=== PATIENT | female | born 1955 | race Caucasian/White ===

== ENCOUNTER 2020-05-20 16:41 | Outpatient (CLI) | payer BC, SELFPAY | END 2020-05-20 16:42 | disposition home or self-care (01) | LOC: ANHCOVIDVC 16:41 | PROVIDERS: PCP Family Medicine Adolescent Medicine | DX: Z23 Encounter for immunization (principal) | CPT/HCPCS: 0001A; 91300 ==

== ENCOUNTER 2020-06-10 16:41 | Outpatient (CLI) | payer BC, SELFPAY | END 2020-06-10 16:42 | disposition home or self-care (01) | LOC: ANHCOVIDVC 16:41 | PROVIDERS: PCP Family Medicine Adolescent Medicine | DX: Z23 Encounter for immunization (principal) | CPT/HCPCS: 0002A; 91300 ==

== ENCOUNTER → 2021-10-03 12:40 | Outpatient (CLI) | payer MEDICARE, SELFPAY ==
--- NOTE | ~2021-10-03 | MM_ITS ---
EXAMINATION: MM screening joann BI w amalia HISTORY: Screening mammogram TECHNIQUE: Craniocaudal and mediolateral oblique 3-D tomosynthesis images were obtained and synthetic 2-D images were generated. CAD analysis was submitted and interpreted. COMPARISON: 08/25/2018 bilateral screening mammogram BREAST PARENCHYMAL COMPOSITION: There are scattered areas of fibroglandular density. FINDINGS: New 3.5 mm opacity in the anterior inner mid left breast (CC Tomosynthesis image 38/78). New and enlarging opacities are suggested in the posterior outer mid left breast (craniocaudal Tomosy nthesis image 36/78). Occasional bilateral benign calcifications. No suspicious mass, architectural distortion, malignant calcification, skin thickening or retraction or significant new or developing density of either breast is noted otherwise. IMPRESSION: 1. New and enlarging opacities on the left 2. Diagnostic left mammogram and left breast ultrasound examination are recommended. BI-RADS Category 0: Incomplete: Needs additional imaging evaluation. Reviewed, dictated and finalized at location B. IMPRESSION: 1. New and enlarging opacities on the left 2. Diagnostic left mammogram and left breast ultrasound examination are recomme nded. BI-RADS Category 0: Incomplete: Needs additional imaging evaluation.
== END ==
PROVIDERS: PCP Family Medicine Adolescent Medicine; Visit Provider Family Medicine Adolescent Medicine
DX: Z12.31 Encounter for screening mammogram for malignant neoplasm of breast (principal); R92.8 Other abnormal and inconclusive findings on diagnostic imaging of breast
CPT/HCPCS: 77063; 77067

== ENCOUNTER → 2021-10-14 07:34 | Outpatient (CLI) | payer MEDICARE, SELFPAY ==
--- NOTE | ~2021-10-14 | MMUS_ITS ---
EXAMINATION: MM diagnostic joann LT w amalia, US breast LT limited HISTORY: Left breast masses on screening mammogram TECHNIQUE: Additional 3-D tomosynthesis images of the left breast were performed and synthetic 2-D im ages were generated. CAD analysis was submitted and interpreted. High resolution limited left breast ultrasound was performed. COMPARISON: 10/03/2021, 08/25/2018, 05/06/2017, 04/22/2017 FINDINGS: MAMMOGRAPHIC FINDINGS: There is a 5 mm irregular, spiculated, equal density mass in the middle third of the upper outer quad rant of the breast 7.5 cm from the nipple. There are circumscribed, low-density 4 mm masses in the an terior and middle thirds of the upper inner breast at the 11:00 location 3.5 cm and 6 cm from the nip ple, respectively. ULTRASOUND: There is a 9 mm x 6 mm irregular, not parallel, hypoechoic mass with indistinct margins, posterior ac oustic shadowing, and peripheral vascularity at the 2:00 location 5 cm from the nipple. There is a 5 mm round hypoechoic mass at the 12:00 location 5 cm from the nipple within the posterior fractures ar e internal vascularity. An adjacent 6 mm x 4 mm mass with similar sonographic features is seen at the 12:00 location 5 cm from the nipple. There is a 4 mm mass with similar sonographic features at the 1 1:00 location 6 cm from the nipple. There appears to be a stable cluster of microcysts at the 1:00 lo cation 6 cm from the nipple. IMPRESSION: 1. Suspicious mass at the 2:00 location 5 cm from the nipple. 2. Ultrasound-guided biopsy is recommended. BI-RADS category 4, suspicious findings. Reviewed, dictated and finalized at location A. IMPRESSION: 1. Suspicious mass at the 2:00 location 5 cm from the nipple. 2. Ultrasound-guided biopsy is recommended. BI-RADS category 4, suspicious findings.
== END ==
PROVIDERS: PCP Family Medicine Adolescent Medicine; Visit Provider Family Medicine Adolescent Medicine
DX: N63.20 Unspecified lump in the left breast, unspecified quadrant (principal); R92.8 Other abnormal and inconclusive findings on diagnostic imaging of breast
CPT/HCPCS: 76642; 77061; 77065; G0279

== ENCOUNTER 2021-11-07 08:58 | Outpatient (CLI) | payer MEDICARE, SELFPAY ==
--- NOTE | ~2021-11-07 | US_ITS ---
EXAMINATION: Consultation US INDICATION: Patient presents for biopsy of a mass in the upper outer quadrant of the left breast TECHNIQUE: Limited left breast ultrasound was performed. COMPARISON: 10/14/2021 FINDINGS: The mass at the 2:00 location 5 cm from the nipple identified on recent ultrasound is not d efinitely seen. This was discussed with the patient and a plan for six-month follow-up left diagnosti c mammogram and ultrasound was agreed upon. IMPRESSION: 1. No definite target identified for ultrasound-guided biopsy. Follow-up left diagnostic mammogram an d ultrasound in six months are recommended. Reviewed, dictated and finalized at location A. IMPRESSION: 1. No definite target identified for ultrasound-guided biopsy. Follow-up left d iagnostic mammogram and ultrasound in six months are recommended.
== END 2021-11-07 08:59 | disposition home or self-care (01) ==
PROVIDERS: PCP Family Medicine Adolescent Medicine; Visit Provider Family Medicine Adolescent Medicine
DX: N63.20 Unspecified lump in the left breast, unspecified quadrant (principal)
CPT/HCPCS: 99199

== ENCOUNTER → 2022-05-06 09:17 | Outpatient (CLI) | payer MEDICARE, SELFPAY ==
--- NOTE | ~2022-05-06 | MMUS_ITS ---
EXAMINATION: MM diagnostic jaonn LT w amalia, US breast LT limited HISTORY: Six-month follow-up TECHNIQUE: Full field and spot ML, MLO and CC 3-D tomosynthesis images of the left breast were perfor med and synthetic 2-D images were generated. CAD analysis was submitted and interpreted. High resolut ion upper inner and upper outer quadrants left breast ultrasound was performed. COMPARISON: 10/14/2021 diagnostic left mammogram and limited left breast ultrasound 10/03/2021 bilateral screening mammogram BREAST PARENCHYMAL COMPOSITION: There are scattered areas of fibroglandular density. FINDINGS: MAMMOGRAPHIC FINDINGS: Multiple nodular masses are again noted, primarily in the upper outer quadrant. The largest is an approximately 1 cm irregular mass situated posteriorly in the upper outer quadrant. ULTRASOUND: 11:00 6 cm from nipple: 1.4 x 4 mm probable cyst 12:00 5 cm from nipple: 3.8 x 4.6 mm sonolucency consistent with small cyst or other benign process 12:00 5 cm from nipple: Parallel circumscribed 2.5 x 6 mm multi septated probable cyst 1:00 6 cm from nipple: Multiple circumscribed small hypoechoic areas with interspersed fibroglandular density, likely a cluster of cysts. 2:00 5 cm from nipple: Anti-parallel irregular hypoechoic lesion with posterior shadowing, measuring up to 7.1 mm depth, 5 mm width; this is very suspicious. Ultrasound-guided biopsy is recommended. IMPRESSION: 1. Very suspicious anti-parallel irregular hypoechoic 5 x 7.1 mm lesion with posterior shadowing at l eft breast 2:00 5 cm from nipple 2. Ultrasound-guided biopsy is recommended at left breast 2:00 5 cm from nipple BI-RADS category 4, suspicious findings. Dr. Rushing telephoned the report and ultrasound guided biopsy recommendation of the left breast 2:00 le sravanthi on 05/06/2022 at 1044 hours to Beverly Santana. Reviewed, dictated and finalized at location A. BERRY GROWER IMPRESSION: 1. Very suspicious anti-parallel irregular hypoechoic 5 x 7.1 mm lesion with po sterior shadowing at left breast 2:00 5 cm from nipple 2. Ultrasound-guided biopsy is recommended at left breast 2:00 5 cm from nipple BI-RADS category 4, suspicious findings. Dr. Rushing telephoned the report and ultrasound guided biopsy recommendation of t he left breast 2:00 lesion on 05/06/2022 at 1044 hours to Beverly Santana.
== END ==
PROVIDERS: PCP Family Medicine Adolescent Medicine; Visit Provider Family Medicine Adolescent Medicine
DX: N63.20 Unspecified lump in the left breast, unspecified quadrant (principal); R92.8 Other abnormal and inconclusive findings on diagnostic imaging of breast
CPT/HCPCS: 76642; 77061; 77065; G0279

== ENCOUNTER 2022-05-13 09:55 | Outpatient (CLI) | payer MEDICARE, SELFPAY ==
--- NOTE | ~2022-05-13 | MMUS_ITS ---
EXAMINATION: US breast biopsy LT w image, MM post biopsy invasive LT DATE: 05/13/2022 11:22 (accession [id number]), 05/13/2022 11:19 (accession [id number]) INDICATION: Indeterminate mass in the upper outer quadrant of the left breast. Ultrasound-guided core biopsy is requested to evaluate for malignancy. TECHNIQUE AND FINDINGS: The risks and potential benefits of the procedure were discussed with the patient including bleeding and infection. A time out was performed. The skin of the left breast was prepared and draped in usual sterile fashion. 1% lidocaine was used for superficial anesthesia. 1% lidocaine with epinephrine was used for deep anesthesia. A vacuum-assisted biopsy needle was advanced through to the outer edge of the region of interest from an inferolateral approach utilizing sonographic guidance. A total of five tissue core samples were o btained through the lesion. A tissue marker clip was then placed at the biopsy site. Hemostasis was a chieved. A sterile bandage was applied. The patient tolerated procedure well and there was no evidence of immediate complication. The patient was given verbal instructions to return to the Emergency Department in the event of severe breast pa in or rapid breast enlargement. A two view left breast mammogram was obtained to document tissue brennen er clip placement. IMPRESSION: 1. Successful ultrasound-guided vacuum-assisted biopsy of left breast mass with tissue marker placeme nt. Reviewed, dictated and finalized at location A. STATION ATTENDANT IMPRESSION: 1. Successful ultrasound-guided vacuum-assisted biopsy of left breast mass with tissue marker placement.
== END 2022-05-13 09:56 | disposition home or self-care (01) ==
PROVIDERS: PCP Family Medicine Adolescent Medicine; Visit Provider Family Medicine Adolescent Medicine
DX: R92.8 Other abnormal and inconclusive findings on diagnostic imaging of breast (principal)
CPT/HCPCS: 19083; 88305; 88342; 88360; A4648

== ENCOUNTER 2022-06-19 07:50 | Outpatient (CLI) | payer MEDICARE, SELFPAY ==
--- NOTE | 2022-06-19 08:00 | ECG_ITS ---
Measurements Intervals [place] Rate: 81 P: 37 AL: 175 QRS: 45 QRSD: 94 T: 47 QT: 359 QTc: 417 Interpretive Statements SINUS RHYTHM NORMAL ECG NO PREVIOUS ECG AVAILABLE FOR COMPARISON Electronically Signed On 06-19-2022 16:45:05 CDT by Pavan Souza M.D.
== END 2022-06-19 07:51 | disposition home or self-care (01) ==
LOC: ANHSURGERY 07:54
PROVIDERS: PCP Family Medicine Adolescent Medicine; Visit Provider Surgery
DX: I10 Essential (primary) hypertension (principal)
CPT/HCPCS: 93005

== ENCOUNTER 2022-06-24 01:58 | Day surgery (SDC) | payer MEDICARE, SELFPAY ==
--- NOTE | 2022-06-15 13:13 | PC.NURSE ---
Report to the Outpatient Waiting Room, entrance under the green pavilion located off [facility], at time _0930 on date _06/24/22 [facility] AT 1030 . Planned Procedure Time: ___1200 . Time changes happen often and if your time is changed the preop area will call you the afternoon before. - You and your visitor will be asked to self-screen and do not enter if you have any COVID symptoms. - A mask is optional within the hospital at this time. Patients may have clear liquids (water, carbonated beverages, clear teas, apple juice) until 3 hours prior to surgery with a maximum of 20 ounces. - No food from midnight until time of surgery - Infants may have breast milk until 4 hours before surgery, infant formula 6 hours prior to surgery. - Children will be allowed to drink immediately following surgery. If applicable, please bring a bottle or sippy cup to assist with drinking. Juice, water, soda, and popsicles are readily available. For infants on formula, please bring formula the day of surgery. Pacifiers are allowed. Take the following medications with a SIP of water the morning of surgery: __NONE DO NOT STOP ANY OF YOUR OTHER PRESCRIPTION MEDICATIONS PRIOR TO SURGERY ?EXCEPT THE FOLLOWING Medications to discontinue per physician ALL VITAMINS/SUPPLEMENTS 3 DAYS PRE OP. LAST DOSE 06/20/22 HIBICLENS SHOWER MORNING OF SURGERY Please no make-up, nail greenlandic, hairspray, perfume, deodorant, or body powder the day of surgery. No jewelry (including any body piercings) or valuables the day of surgery, leave them at home. Please take a shower or bath the night before, or the morning of, surgery with an antibacterial soap. Wear comfortable, loose fitting clothing. Children are encouraged to wear pajamas. - Jewelry must be removed prior to entering the operating room. Rings and piercings that are not removed may be cut off. - The hospital will not accept responsibility for valuables. - Please leave all valuables, including medications, at home the day of surgery. If you are going home after surgery, a licensed route salesman and driver must drive you home. - NO public transportation without another adult if you receive anesthesia. - We recommend that an adult stay with you for 24 hours following discharge. - We also recommend that you do not drive, make important decision, drink alcoholic beverages, or take any drugs that were not prescribed by your health care provider for at least 24 hours after your discharge time. Follow any additional instructions given to you from your surgeon. If you or anyone in your household have experienced Covid symptoms in the past week, please notify your surgeon or the nurse liaison at the phone number below for possible testing. Telephone instructions given to ___PATIENT and asked if any additional questions and then verbalized understanding. Patient advised to call surgeon office or pre surgery nurse liaison [phone] if any additional questions.
[2022-06-15 13:21] VITALS: BMI 33.9
[2022-06-24] VITALS (8 sets, daily range): BP systolic 125–148; BP diastolic 69–110; PULSE 80–96; RESP 14–16; TEMP 36.3–37.1; O2SAT 95–100
--- NOTE | ~2022-06-24 | NM_ITS ---
EXAMINATION: NM sentinel node inject only INDICATION: Left breast cancer TECHNIQUE: 1.018 mCi Tc 99m Lymphoseek were injected in 4 aliquots in the left breast near the areola . No images were obtained. IMPRESSION: 1. Status post left breast sentinel lymph node radiopharmaceutical injection. Please refer to procedu re note for full details. Reviewed, dictated and finalized at location A. IMPRESSION: 1. Status post left breast sentinel lymph node radiopharmaceutical injection. P lease refer to procedure note for full details.
--- NOTE | ~2022-06-24 | MM_ITS ---
EXAMINATION: MM needle loc LT, MM surgical specimen LT DATE: 06/24/2022 10:13 (accession [id number]), 06/24/2022 13:05 (accession [id number]) INDICATION: Left breast cancer TECHNIQUE: The procedure for a mammography-guided needle localization was discussed with the patient. Risks and benefits were detailed including risks of bleeding and infection. The patient verbalized u nderstanding and agreed to proceed. A time out was performed to verify the patient's name, date of , and site of procedure. The silvia ent was placed in lateral medial compression, and the skin overlying the lateral left breast was pre pared in usual fashion. The skin and subcutaneous soft tissues were infiltrated with 1% lidocaine for local anesthesia. Utilizing mammography guidance, a needle was advanced into the left breast. Two co nfirmatory films were obtained. The patient tolerated procedure without immediate complication. A specimen radiograph was performed. FINDINGS: Two view confirmatory films of the left breast demonstrate a needle with tip adjacent to bi opsy marker. The biopsy marker and wire are contained within the surgical specimen. IMPRESSION: 1. Successful mammography-guided left breast needle localization. Reviewed, dictated and finalized at location A. IMPRESSION: 1. Successful mammography-guided left breast needle localization.
[2022-06-24] MEDS: ACETAMINOPHEN 500 MG TABLET 1000 MG PO (09:30)
[2022-06-24] MEDS: LACTATED RINGERS 1,000 ML 30 ML IV CONT (10:30)
--- NOTE | 2022-06-24 11:21 | WPDANESEPPF ---
Anes - Initial Pre Proc Eval Procedure: Operation Date: 06/24/22 12:00 Proposed Procedures p Left Breast Lumpectomy with [place] Lymph Node Biopsy - Savanah Weaver MD s Left Breast Ultrasound And/Or Mammogram, Guided Needle Localization with Lymphoscintigraphy - Savanah Weaver MD Date/Time: 06/24/22 11:21 Surgeon: Savanah Weaver MD Pre Op Diagnosis: Left Breast Cancer Patient Data Age: 66 Gender: F Height: 1.66 m Weight: 96.1 kg Last Vital Signs Temp 98.7 F 06/24/22 09:52 Pulse 82 06/24/22 10:35 Resp 16 06/24/22 09:52 BP 139/83 06/24/22 10:35 Pulse Ox 100 06/24/22 09:52 O2 Del Method Room Air 06/24/22 09:52 Allergies Allergy/AdvReac Type Severity Reaction Status Date / Time Sulfa (Sulfonamide Allergy Unknown UNKNOWN Verified 06/24/22 09:24 Antibiotics) REACTION Home Medications Medication Instructions Recorded Confirmed Type ascorbate calcium (vitamin C) 500 500 mg PO DAILY 07/15/21 06/24/22 History mg tablet aspirin 81 mg tablet,delayed 81 mg PO DAILY 07/15/21 06/24/22 History release apjvjbn-hvioccrlupbeo-ahdztvnn 250 1 tablet PO .QD 07/15/21 06/24/22 History mg-250 mg-65 mg tablet (Excedrin Migraine) calcium carbonate 600 mg calcium 600 mg PO DAILY 07/15/21 06/24/22 History (1,500 mg) tablet (Calcium) cetirizine 10 mg capsule (Zyrtec) 10 mg PO DAILY PRN Allergy Symptoms 07/15/21 06/24/22 History esomeprazole magnesium 20 mg 20 mg PO .PRN 07/15/21 06/24/22 History capsule,delayed release (Nexium) glucosamine 750 mg-chondroit 100 2 tablet PO .QD 07/15/21 06/24/22 History mg-msm-D3 25 rap-ynrm-rhu bor tablet magnesium 200 mg tablet 250 mg PO DAILY 07/15/21 06/24/22 History jnsjojvw-rngbhrn-jucx-lutein tablet 1 tablet PO .QD 07/15/21 06/24/22 History naproxen sodium 220 mg capsule 220 mg PO .QD PRN Pain 07/15/21 06/24/22 History (Aleve) omega-3 fatty acids 500 mg capsule 500 mg PO DAILY 07/15/21 06/24/22 History vit C 250 mg-vit E 90 mg-zinc 40 1 tablet PO .QD 07/15/21 06/24/22 History mg-copper 1 cb-bgrvma-juahif capsule (PreserVision AREDS-2) zinc gluconate 30 mg tablet 30 mg PO DAILY 07/15/21 06/24/22 History atorvastatin 20 mg tablet 20 mg PO DAILY #90 tabs 12/05/21 06/24/22 Rx losartan 50 mg tablet 50 mg PO DAILY #90 tabs 12/05/21 06/24/22 Rx cholecalciferol (vitamin D3) 25 25 mcg PO DAILY 06/15/22 06/24/22 History mcg (1,000 unit) tablet ginkgo biloba 40 mg tablet 40 mg PO DAILY 06/15/22 06/24/22 History pyridoxine (vitamin B6) 100 mg 100 mg PO DAILY 06/15/22 06/24/22 History tablet Patient hx anesthesia problems: post op nausea/vomiting Family hx anesthesia problems: none Results Review: All pre-operative results and documents have been reviewed as part of the pre-operative evaluation. [facility] Past Medical History Medical History Essential (primary) hypertension Gastro-esophageal reflux disease without esophagitis History of menopause Early 50s Mixed hyperlipidemia Surgical History Surgical History History of knee surgery History of tonsillectomy Family History Family History Father Acute myocardial infarction Heart disease Hypertension Mother Breast cancer Diabetes mellitus Other Breast cancer Social History Social History Smoking status: Never smoker Second hand tobacco smoke exposure: No Alcohol intake: current Drinks per week: 1 Substance use: never Substance use type: does not use Living arrangements: with family Occupation/Education: retired Gender identity (if verbalized by the patient): Female Sexual Orientation (if Verbalized by the Patient): Straight or Heterosexual Spiritual care concerns: No Agree to blood products: Yes Raynes - Anisa
[2022-06-24] MEDS: SCOPOLAMINE 1.5 MG PATCH TRANSDERM (11:30)
[2022-06-24] MEDS: KETOROLAC 15 MG/ML VIAL (*BKC) IV PUSH (11:59)
--- NOTE | 2022-06-24 12:02 | WPDHPUPDATE1 ---
History and Physical Update Update Date/Time: 06/24/22 12:02 History and Physical has been reviewed, including an updated exam of the patient. There are NO changes in the patient's condition. Risks, benefits, and alternatives have been discussed and questions answered. Patient agrees to proceed with procedure. after d/w oncology plan to proceed c L breast lumpectomy c preop needle loc and L ax SLNB
--- NOTE | 2022-06-24 12:04 | PM.IMHP ---
H&P: HPI History of Present Illness Date/Time: 06/24/22 12:04 Chief Complaint: Left breast cancer Narrative: Chen is a 66 y/o female who presents to the office accompanied by her at the request of Dr. Paul for evaluation of a left breast mass. Patient underwent screening mammogram in September 2021 showing an abnormality in the left breast. Diagnostic mammogram/ultrasound was done in October 2021 showing a suspicious mass at the 2:00 location 5 cm from the nipple. US guided biopsy was recommended, however they were unable to target the area to be biopsied. Patient was recommended to have repeat imaging 6 months from previous imaging. Diagnostic mammogram/ultrasound on 05/06/22 FINDINGS: MAMMOGRAPHIC FINDINGS: Multiple nodular masses are again noted, primarily in the upper outer quadrant. The largest is an approximately 1 cm irregular mass situated posteriorly in the upper outer quadrant. ULTRASOUND: 11:00 6 cm from nipple: 1.4 x 4 mm probable cyst 12:00 5 cm from nipple: 3.8 x 4.6 mm sonolucency consistent with small cyst or other benign process 12:00 5 cm from nipple: Parallel circumscribed 2.5 x 6 mm multi septated probable cyst 1:00 6 cm from nipple: Multiple circumscribed small hypoechoic areas with interspersed fibroglandular density, likely a cluster of cysts. 2:00 5 cm from nipple: Anti-parallel irregular hypoechoic lesion with posterior shadowing, measuring up to 7.1 mm depth, 5 mm width; this is very suspicious. Ultrasound-guided biopsy is recommended. IMPRESSION: 1. Very suspicious anti-parallel irregular hypoechoic 5 x 7.1 mm lesion with posterior shadowing at left breast 2:00 5 cm from nipple 2. Ultrasound-guided biopsy is recommended at left breast 2:00 5 cm from nipple BI-RADS category 4, suspicious findings. Pathology revealed invasive ductal carcinoma. Patient states she cannot feel the area of concern. She denies any breast pain, redness, nipple discharge or inversion. Patient reports a family history of breast cancer with her mother and maternal aunt. Review of Systems Review of Systems: All systems reviewed & are unremarkable except as noted in HPI and below PMFSH Past Medical History Medical History Essential (primary) hypertension Gastro-esophageal reflux disease without esophagitis History of menopause Early 50s Mixed hyperlipidemia Surgical History Surgical History History of knee surgery History of tonsillectomy Family History Family History Father Acute myocardial infarction Heart disease Hypertension Mother Breast cancer Diabetes mellitus Other Breast cancer Social History Social History Smoking status: Never smoker Second hand tobacco smoke exposure: No Alcohol intake: current Drinks per week: 1 Substance use: never Substance use type: does not use Living arrangements: with family Occupation/Education: retired Gender identity (if verbalized by the patient): Female Sexual Orientation (if Verbalized by the Patient): Straight or Heterosexual Spiritual care concerns: No Agree to blood products: Yes Meds Home Medications and Allergies Home Medications Medication Instructions Recorded Confirmed Type ascorbate calcium (vitamin C) 500 500 mg PO DAILY 07/15/21 06/24/22 History mg tablet aspirin 81 mg tablet,delayed 81 mg PO DAILY 07/15/21 06/24/22 History release jarajfv-ncmbfkjqrqioh-zlqmdale 250 1 tablet PO .QD 07/15/21 06/24/22 History mg-250 mg-65 mg tablet (Excedrin Migraine) calcium carbonate 600 mg calcium 600 mg PO DAILY 07/15/21 06/24/22 History (1,500 mg) tablet (Calcium) cetirizine 10 mg capsule (Zyrtec) 10 mg PO DAILY PRN Allergy Symptoms 07/15/21 06/24/22 History esomeprazole magnesium 20 mg 20 mg PO .PRN
[2022-06-24] MEDS: ceFAZolin 2 GM/D5W 50 ML 2 GM/50 ML BAG IVPB (12:11)
[2022-06-24] MEDS: BUPIVACAINE/EPINEPHRINE 0.5% 50 ML VIAL 30 ML INFILTRATE (12:11)
[2022-06-24] MEDS: ISOSULFAN BLUE 1% INJ 5 ML VIAL SUB-Q (12:11)
--- NOTE | 2022-06-24 13:28 | P.OP_ITS ---
Procedure Note - Detailed Date of Procedure 06/24/22 Pre-op Diagnosis Left Breast Cancer Post-op Diagnosis Same Procedure Performed segmental mastectomy left breast invasive ductal carcinoma with preoperative needle localization, left axillary sentinel lymph node biopsy with preoperative lymphoscintigraphy Surgeon Savanah Weaver MD Anesthesia General and Local Indications 66-year-old female with biopsy-proven right invasive ductal carcinoma Findings specimen confirmed via postop imaging, blue and hot SLN in L axilla Description of Procedure The patient was taken to the operating room and placed in the supine position. After adequate induction of general anesthesia, the patient was prepped and draped in the normal sterile fashion. A time-out was then done to verify the patient's identity, as well as the procedure being performed. I began by injecting 50% Lymphazurin blue mixed with saline in each of the 4 quadrants of the nipple-areolar complex. This was then massaged into the left axilla. I the n localized the area around the previously placed wire. I then made a curvilinear incision just medial to the wire. Once to the level of the breast tissue, I raised flaps around the incision to separate the breast tissue off the overlying dermis. The wire was encountered at this point and brought into the operative field. I then carefully dissected around the wire making sure to get adequate tissue especially around the tip of the wire. Once I was circumferentially around the wire, I dissected posteriorly and excised the specimen. I then marked the specimen with a short stitch superiorly and a long stitch laterally. The tissue was then sent to imaging, and the marker was confirmed within the specimen. I then gained hemostasis with the Bovie cautery. The subcutaneous tissue was closed with 3-0 Vicryl suture. The skin was closed with 4-0 Monocryl subcuticular suture. Dermabond was then placed on the wound. Using the Brimhall Nizhoni counter, a hot spot was found in the left axilla. I then localized the area over the spot, I then made an incision. This was carried down into the left axilla. A lymph node was immediately encountered, this was noted to be both hot and blue. I carefully excised this lymph node using both blunt and sharp dissection. The Jose counter was used to confirm this sentinel lymph node. After removal, I used the Br[place]hall Nizhoni counter again and did not encounter any other hot or blue areas. The right axilla was copiously irrigated. The subcutaneous tissue was closed with 3-0 Vicryl suture. Skin was closed with 4-0 Monocryl subcuticular suture. The patient tolerated the procedure well and was extubated in the operating room postoperatively. She will be sent to the recovery room in stable condition. Estimated Blood Loss 10 Drains No Packing No Pathology Yes Complications No immediate complications Condition Stable Disposition PACU [facility] Billing Surgery - Charge Forward: Surgery Billing
== END 2022-06-24 15:10 | disposition home or self-care (01) ==
PROVIDERS: PCP Family Medicine Adolescent Medicine; Visit Provider Surgery
PROC: (CPT 19301; principal; 2022-06-24 12:00)
PROC: (CPT 19301; 2022-06-24 12:00)
DX: C50.412 Malignant neoplasm of upper-outer quadrant of left female breast (principal); Z17.0 Estrogen receptor positive status [ER+]; I10 Essential (primary) hypertension; E78.2 Mixed hyperlipidemia; K21.9 Gastro-esophageal reflux disease without esophagitis; Z79.82 Long term (current) use of aspirin; E66.9 Obesity, unspecified; Z68.34 Body mass index [BMI] 34.0-34.9, adult
CPT/HCPCS: 19301; 38525; 19281; 38792; 76098; 88307; A9270; A9520; C1769; J0690; J1100; J1885; J2250; J2405; J2704; J3010; J7120

== ENCOUNTER 2022-07-30 13:38 | Outpatient (CLI) | payer MEDICARE, SELFPAY ==
--- NOTE | ~2022-07-30 | US_ITS ---
EXAMINATION: US_ABSCYSTIMG_US, US breast LT limited DATE: 07/30/2022 15:26 (accession [id number]), 07/30/2022 14:49 (accession [id number]) INDICATION: Patient with skin redness of the left breast status post recent lumpectomy, concern for a bscess TECHNIQUE: Preliminary scanning of the left breast demonstrates an approximately 3.6 x 2.7 cm oval, c ircumscribed, parallel, complex cystic and solid mass with posterior acoustic enhancement in the oute r breast at the 3:00 location six, 6 cm from the nipple. There is overlying skin thickening of the br east. Differential of abscess and/or postoperative hematoma/seroma was discussed with the patient and decision was made to attempt aspiration. The procedure including the risks and benefits were discuss ed with the patient. Risks discussed included bleeding including bleeding and infection. A timeout was performed to verify the patient's name, date of , and procedure to be performed. The skin ov erlying the left was prepped and draped in usual sterile fashion. Anesthetic was administered with 1 % lidocaine subcutaneously followed by 1% lidocaine with epinephrine for deep anesthesia. Under ultra sound guidance, an 18-gauge spinal needle was placed within the breast mass. Approximately 15 cc of d ark red fluid were drained from the mass. There were no immediate complications. FINDINGS: Ultrasound images demonstrate the catheter within the left breast mass. IMPRESSION: 1. Successful ultrasound-guided percutaneous left breast mass drainage, likely postoperative hematoma /seroma. Reviewed, dictated and finalized at location A. IMPRESSION: 1. Successful ultrasound-guided percutaneous left breast mass drainage, likely postoperative hematoma/seroma.
== END 2022-07-30 13:39 | disposition home or self-care (01) ==
PROVIDERS: PCP Family Medicine Adolescent Medicine; Visit Provider Radiology Radiation Oncology
DX: C50.912 Malignant neoplasm of unspecified site of left female breast (principal)
CPT/HCPCS: 10160; 19000; 76642; 76942; 77290; 77334

== ENCOUNTER 2022-09-23 09:17 | Outpatient (CLI) | payer MEDICARE, SELFPAY ==
[2022-09-23 09:27] LABS: Basophils Percent Auto 0.8 % (0.2-1.2); Eosinophils Absolute Auto 0.2 K/mm3 (0-0.3); Eosinophils Percent Auto 3.8 % (0-4.4); Hematocrit 41.3 % (37.0-47.0); Hemoglobin 13.8 g/dL (12.0-15.0); Immature Granulocyte Absolute 0.02 K/mm3 (0.00-0.031); Immature Granulocyte Percent A 0.4 % (0-0.5); Lymphocytes Absolute Auto 0.89 K/mm3 (0.9-3.2); Mean Corpuscular HGB Conc 33.4 g/dl (32-36); Mean Corpuscular Hemoglobin 30.1 pg (26-34); Mean Corpuscular Volume 90.2 fl (80-100); Mean Platelet Volume 9.3 fl (7.4-10.4); Monocytes Absolute Auto 0.7 K/mm3 (0.1-0.6); Monocytes Percent Auto 13.6 % (2.6-8.5); Neutrophils Absolute Auto 3.4 K/mm3 (1.3-6.7); Neutrophils Percent Auto 64.4 % (45.5-73.1); Platelet Count Result 215 k/mm3 (150-375); Red Blood Count 4.58 M/mm3 (4.2-5.4); Red Cell Distribution Width 13.6 % (11.5-14.5); White Blood Count 5.2 K/mm3 (4.5-10.0)
[2022-09-23 09:31] LABS: Blood Urea Nitrogen 14 mg/dL (8-26); Carbon Dioxide 21 mmol/L (22-30); Chloride 103 mmol/L (98-109); Estimated Glomerular Filt Rate > 60; Glucose 102 mg/dL (70-105); Ionized Calcium (POC) 1.15 mmol/L (1.11-1.31); Potassium 3.8 mmol/L (3.5-4.9); Sodium 138 mmol/L (138-146)
[2022-09-23 10:32] LABS: Alanine Aminotransferase 32 U/L (6-35); Albumin Level 4.2 g/dL (3.5-5.1); Alkaline Phosphatase 67 U/L (38-126); Anion Gap 9 mmol/L (8-16); Aspartate Amino Transferase 28 U/L (14-36); Bilirubin,Total 0.9 mg/dL (0.2-1.3); Blood Urea Nitrogen 14 mg/dL (7-17); Carbon Dioxide 25 mmol/L (22-30); Chloride 103 mmol/L (98-107); Estimated Glomerular Filt Rate > 60; Glucose 101 mg/dL (65-110); Sodium 137 mmol/L (137-145)
== END 2022-09-23 09:18 | disposition home or self-care (01) ==
LOC: ANHLAB 09:19
PROVIDERS: PCP Family Medicine Adolescent Medicine; Visit Provider Internal Medicine Hematology & Oncology
DX: C50.412 Malignant neoplasm of upper-outer quadrant of left female breast (principal); Z17.0 Estrogen receptor positive status [ER+]
CPT/HCPCS: 36415; 80047; 80053; 85025

== ENCOUNTER 2022-11-25 08:14 | Outpatient (CLI) | payer MEDICARE, SELFPAY ==
[2022-11-25 08:29] LABS: Basophils Absolute Auto 0.1 K/mm3 (0.0-0.1); Basophils Percent Auto 1.1 % (0.2-1.2); Eosinophils Absolute Auto 0.2 K/mm3 (0-0.3); Eosinophils Percent Auto 3.7 % (0-4.4); Hematocrit 41.8 % (37.0-47.0); Hemoglobin 13.8 g/dL (12.0-15.0); Immature Granulocyte Absolute 0.01 K/mm3 (0.00-0.031); Immature Granulocyte Percent A 0.2 % (0-0.5); Lymphocytes Absolute Auto 1.05 K/mm3 (0.9-3.2); Lymphocytes Percent Auto 22.7 % (18.3-44.2); Mean Corpuscular Hemoglobin 30.3 pg (26-34); Mean Corpuscular Volume 91.7 fl (80-100); Mean Platelet Volume 9.5 fl (7.4-10.4); Monocytes Absolute Auto 0.7 K/mm3 (0.1-0.6); Monocytes Percent Auto 15.3 % (2.6-8.5); Neutrophils Absolute Auto 2.6 K/mm3 (1.3-6.7); Platelet Count Result 224 k/mm3 (150-375); Red Blood Count 4.56 M/mm3 (4.2-5.4); Red Cell Distribution Width 13.6 % (11.5-14.5); White Blood Count 4.6 K/mm3 (4.5-10.0)
[2022-11-25 09:31] LABS: Alanine Aminotransferase 26 U/L (6-35); Albumin Level 4.3 g/dL (3.5-5.1); Alkaline Phosphatase 67 U/L (38-126); Anion Gap 9 mmol/L (8-16); Aspartate Amino Transferase 28 U/L (14-36); Bilirubin,Total 0.9 mg/dL (0.2-1.3); Blood Urea Nitrogen 16 mg/dL (7-17); Calcium 9.1 mg/dL (8.4-10.2); Carbon Dioxide 23 mmol/L (22-30); Chloride 104 mmol/L (98-107); Estimated Glomerular Filt Rate > 60; Glucose 96 mg/dL (65-110); Potassium 3.8 mmol/L (3.4-5.0); Sodium 136 mmol/L (137-145)
[2022-11-30 15:25] LABS: CA 15-3 15 U/mL (<32)
== END 2022-11-25 08:15 | disposition home or self-care (01) ==
LOC: ANHLAB 08:16
PROVIDERS: PCP Family Medicine Adolescent Medicine; Visit Provider Internal Medicine Hematology & Oncology
DX: C50.412 Malignant neoplasm of upper-outer quadrant of left female breast (principal); Z17.0 Estrogen receptor positive status [ER+]
CPT/HCPCS: 36415; 80053; 85025; 86300

== ENCOUNTER 2022-12-28 10:54 | Outpatient (CLI) | payer MEDICARE, SELFPAY ==
--- NOTE | ~2022-12-28 | MMUS_ITS ---
EXAMINATION: MM diagnostic joann BI w amalia, US breast BI limited HISTORY: Left breast malignancy; status post left partial mastectomy and radiotherapy TECHNIQUE: 4 field and spot ML, MLO and CC 3-D tomosynthesis images of both breasts were performed an d synthetic 2-D images were generated. CAD analysis was submitted and interpreted. High resolution bi lateral upper outer and lower-outer quadrant breast ultrasound was performed. COMPARISON: 07/30/2022 left breast ultrasound guided drainage procedure 05/13/2022 left ultrasound guided breast biopsy 05/06/2022 diagnostic left mammogram and limited left breast ultrasound examination 10/14/2021 diagnostic left mammogram and limited left breast ultrasound 10/03/2021 bilateral screening mammogram BREAST PARENCHYMAL COMPOSITION: There are scattered areas of fibroglandular density. FINDINGS: MAMMOGRAPHIC FINDINGS: Right breast: There are scattered benign-appearing rounded calcifications, consistent with microhematomas and/or be nign fibroadenomas. Left breast: There is an asymmetric approximately 2.3 x 5.2 cm irregular opacity in the posterior upp er outer left breast, likely postoperative change from partial mastectomy. There is mild overlying re traction. There is skin thickening of the left breast, likely due to radiotherapy. Limited bilateral benign appearing calcification. ULTRASOUND: Right breast: 12:00 2 cm from nipple: Rounded 2.2 x 3.7 mm circumscribed hypoechoic lesion without posterior shadow ing, probably benign 12:00 1 cm from nipple: Oval parallel circumscribed 4 x 2.9 x 5.1 mm mixed solid and sonolucent lesio n, without suspicious shadowing, likely benign 9:00 near nipple: 2.4 mm cyst Left breast: 1:00 3 cm from nipple: Parallel circumscribed hypoechoic 9.9 x 3.4 x 4.6 mm lesion without internal v ascularity or posterior shadowing, benign in appearance 2:00 5 cm from nipple: Parallel circumscribed mixed sonolucent and solid complex lesion measuring 1.5 x 7.7 x 9 mm, without internal vascularity, likely benign. 3:00 6 cm from nipple: Parallel circumscribed oval complicated cyst measuring 2.8 x 1.6 x 2.3 cm, wit h through transmission posterior enhancement and no internal vascularity, likely a postoperative sero ma. IMPRESSION: 1. Probable bilateral benign findings; six-month follow-up bilateral diagnostic mammogram and breast ultrasound examination is recommended 2. Status post left partial mastectomy and radiotherapy for breast malignancy BI-RADS category 3, probably benign findings. Reviewed, dictated and finalized at location A. IMPRESSION: 1. Probable bilateral benign findings; six-month follow-up bilateral diagnostic mammogram and breast ultrasound examination is recommended 2. Status post left partial mastectomy and radiotherapy for breast malignancy BI-RADS category 3, probably benign findings.
== END 2022-12-28 10:55 | disposition home or self-care (01) ==
PROVIDERS: PCP Family Medicine Adolescent Medicine; Visit Provider Radiology Radiation Oncology
DX: C50.912 Malignant neoplasm of unspecified site of left female breast (principal); R92.8 Other abnormal and inconclusive findings on diagnostic imaging of breast
CPT/HCPCS: 76642; 77062; 77066; G0279

== ENCOUNTER 2023-02-11 10:17 | Outpatient (CLI) | payer MEDICARE, SELFPAY ==
--- NOTE | ~2023-02-11 | DEXA_ITS ---
Bone Density Report Name: JESUS RIVERA Age: 67 Sex: Female Ethnicity: White Date of : 1955 Indication: postmenopausal; screening for osteoporosis; height loss; cancer; Referring Provider: GARFIELD LAGUNAS Study: Bone densitometry was performed. Exam Date: February 11, 2023 Accession number: [id number] Bone Density: Region BMD T-score Z-score Classification AP Spine(L1-L4) 0.875 -1.6 0.4 Osteopenia Femoral Neck (Left) 0.800 -0.4 1.3 Normal Total Hip (Left) 0.939 0.0 1.4 Normal Femoral Neck (Right) 0.834 -0.1 1.6 Normal Total Hip (Right) 0.922 -0.2 1.2 Normal Total Hip Mean 0.930 -0.1 1.3 Normal World Health Organization criteria for BMD impression classify patients as: Normal (T-score at or above -1.0), Osteopenia (T-score between -1.0 and -2.5), or Osteoporosis (T-score at or below -2.5). 10-year Fracture Risk(1): Major Osteoporotic Fracture 7.1% Hip Fracture 0.4% Reported Risk Factors: [place] (), Neck BMD=0.800, BMI=36.0 (1) FRAX(R) Version 3.08. Fracture probability calculated for an untreated patient. Fracture probability may be lower if the patient has received treatment. Clinical Information Provided by Patient: Has used the following medications: Vitamin D, Calcium Has the following medical conditions: Cancer Patient maximum height was 65 Menopause Age: 49 No regular weight bearing exercise Drinks caffeinated beverages Onset of menses at age 12 Number of children 0 Impression: The patient has low bone mass, based on the Total Spine T-score. The patient has an estimated ten-year risk of hip fracture of 0.4% and an estimated ten-year risk of major fracture of 7.1%, based on the WHO FRAX algorithm. Discussion: BONE DENSITY IS LOW AT ONE OR MORE SKELETAL SITES. This patient's lowest T-score is low at one or more skeletal sites. It meets the World Health Organization's (WHO) criteria for ?low bone mass? (T-score between -1.0 and -2.5). The patient's 10-year risk of fracture as calculated by FRAX is less than the threshold where pharmacological therapy is recommended by the National Osteoporosis Foundation (NOF). However, all treatment decisions require clinical judgment and consideration of individual patient factors, including patient preferences, comorbidities, previous drug use, risk factors not captured in the FRAX model (e.g., frailty, falls, vitamin D deficiency, increased bone turnover, interval significant decline in bone density) and possible under or overestimation of fracture risk by FRAX. The patient should follow a healthful lifestyle (good nutrition with adequate calcium and vitamin D, and appropriate weight-bearing exercise). Follow-Up: Consider repeating this study in 2 to 3 years to reassess this patient's status, or sooner if the
== END 2023-02-11 10:18 | disposition home or self-care (01) ==
PROVIDERS: PCP Family Medicine Adolescent Medicine; Visit Provider Family Medicine Adolescent Medicine
DX: Z78.0 Asymptomatic menopausal state (principal); C50.912 Malignant neoplasm of unspecified site of left female breast; M85.88 Other specified disorders of bone density and structure, other site
CPT/HCPCS: 77080

== ENCOUNTER 2023-03-11 08:13 | Outpatient (CLI) | payer MEDICARE, SELFPAY ==
[2023-03-11 08:49] LABS: Hematocrit 40.5 % (37.0-47.0); Hemoglobin 13.5 g/dL (12.0-15.0); Mean Corpuscular HGB Conc 33.3 g/dl (32-36); Mean Corpuscular Hemoglobin 30.3 pg (26-34); Mean Corpuscular Volume 90.8 fl (80-100); Mean Platelet Volume 9.5 fl (7.4-10.4); Platelet Count Result 233 k/mm3 (150-375); Red Blood Count 4.46 M/mm3 (4.2-5.4); Red Cell Distribution Width 13.1 % (11.5-14.5)
[2023-03-14 04:04] LABS: CA 15-3 16 U/mL (<32)
== END 2023-03-11 08:14 | disposition home or self-care (01) ==
LOC: ANHLAB 08:15
PROVIDERS: PCP Family Medicine Adolescent Medicine; Visit Provider Internal Medicine Hematology & Oncology
DX: C50.412 Malignant neoplasm of upper-outer quadrant of left female breast (principal); Z17.0 Estrogen receptor positive status [ER+]
CPT/HCPCS: 36415; 82728; 85027; 86300

== ENCOUNTER 2023-06-23 10:12 | Outpatient (CLI) | payer MEDICARE, SELFPAY ==
--- NOTE | ~2023-06-23 | MMUS_ITS ---
EXAMINATION: MM diagnostic joann BI w amalia, US breast LT limited HISTORY: History of invasive ductal carcinoma of the left breast. TECHNIQUE: Additional 3-D tomosynthesis images of the breasts were performed and synthetic 2-D images were generated. CAD analysis was submitted and interpreted. High resolution Limited left breast ultr asound was performed. COMPARISON: Comparison to multiple prior studies sequentially, with oldest reviewed study dated 08/25. BREAST PARENCHYMAL COMPOSITION: Not dense: There are scattered areas of fibroglandular density. FINDINGS: MAMMOGRAPHIC FINDINGS: The right breast is stable without evidence for malignancy. Stable irregular shaped mass in the upper outer quadrant of the left breast, although there is increased central lucency. This corresponds to the area of previous lumpectomy and radiation therapy. ULTRASOUND: Limited left breast ultrasound: There are small cysts at 1:00 and 2:00. At 3:00, 6 cm from the nipple there is an oval mixed heterogeneous solid and cystic mass measuring 2.4 x 2.2 x 1.3 cm compared wit h 2.8 x 2.3 x 1.6 cm on prior examination. There is posterior acoustic enhancement without internal v ascularity, most likely postoperative seroma/hematoma. IMPRESSION: 1. Probable benign findings of the left breast consistent with prior lumpectomy site post radiation t herapy. 2. Recommend 6 month follow-up diagnostic left mammogram and ultrasound BI-RADS category 3, probably benign findings. Reviewed, dictated and finalized at location B. IMPRESSION: 1. Probable benign findings of the left breast consistent with prior lumpectomy site post radiation therapy. 2. Recommend 6 month follow-up diagnostic left mammogram and ultrasound BI-RADS category 3, probably benign findings.
== END 2023-06-23 10:13 | disposition home or self-care (01) ==
PROVIDERS: PCP Family Medicine Adolescent Medicine; Visit Provider Internal Medicine Hematology & Oncology
DX: C50.412 Malignant neoplasm of upper-outer quadrant of left female breast (principal); Z17.0 Estrogen receptor positive status [ER+]; R92.8 Other abnormal and inconclusive findings on diagnostic imaging of breast
CPT/HCPCS: 76642; 77062; 77066; G0279

== ENCOUNTER 2023-06-23 12:13 | Outpatient (CLI) | payer MEDICARE, SELFPAY ==
[2023-06-23 12:27] LABS: Basophils Absolute Auto 0.1 K/mm3 (0.0-0.1); Basophils Percent Auto 0.9 % (0.2-1.2); Eosinophils Absolute Auto 0.2 K/mm3 (0-0.3); Eosinophils Percent Auto 2.8 % (0-4.4); Hematocrit 37.8 % (37.0-47.0); Hemoglobin 12.7 g/dL (12.0-15.0); Immature Granulocyte Absolute 0.01 K/mm3 (0.00-0.031); Immature Granulocyte Percent A 0.2 % (0-0.5); Lymphocytes Absolute Auto 0.99 K/mm3 (0.9-3.2); Lymphocytes Percent Auto 18.6 % (18.3-44.2); Mean Corpuscular HGB Conc 33.6 g/dl (32-36); Mean Corpuscular Hemoglobin 30.3 pg (26-34); Mean Corpuscular Volume 90.2 fl (80-100); Mean Platelet Volume 9.6 fl (7.4-10.4); Monocytes Absolute Auto 0.6 K/mm3 (0.1-0.6); Monocytes Percent Auto 10.3 % (2.6-8.5); Neutrophils Absolute Auto 3.6 K/mm3 (1.3-6.7); Neutrophils Percent Auto 67.2 % (45.5-73.1); Platelet Count Result 232 k/mm3 (150-375); Red Blood Count 4.19 M/mm3 (4.2-5.4); Red Cell Distribution Width 13.6 % (11.5-14.5); White Blood Count 5.3 K/mm3 (4.5-10.0)
[2023-06-23 17:10] LABS: Alanine Aminotransferase 31 U/L (6-35); Albumin Level 4.7 g/dL (3.5-5.1); Alkaline Phosphatase 80 U/L (38-126); Anion Gap 10 mmol/L (4-12); Aspartate Amino Transferase 30 U/L (14-36); Bilirubin,Total 0.6 mg/dL (0.2-1.3); Blood Urea Nitrogen 17 mg/dL (7-17); Calcium 9.9 mg/dL (8.4-10.2); Carbon Dioxide 24 mmol/L (22-30); Chloride 101 mmol/L (98-107); Estimated Glomerular Filt Rate > 60; Glucose 106 mg/dL (65-110); Potassium 3.2 mmol/L (3.4-5.0); Sodium 135 mmol/L (137-145)
[2023-06-25 13:54] LABS: CA 15-3 12 U/mL (<32)
== END 2023-06-23 12:14 | disposition home or self-care (01) ==
LOC: ANHLAB 12:16
PROVIDERS: PCP Family Medicine Adolescent Medicine; Visit Provider Internal Medicine Hematology & Oncology
DX: C50.412 Malignant neoplasm of upper-outer quadrant of left female breast (principal); Z17.0 Estrogen receptor positive status [ER+]
CPT/HCPCS: 36415; 80053; 85025; 86300

== ENCOUNTER 2023-09-22 08:14 | Outpatient (CLI) | payer MEDICARE, SELFPAY ==
[2023-09-22 08:29] LABS: Basophils Absolute Auto 0.1 K/mm3 (0.0-0.1); Eosinophils Absolute Auto 0.3 K/mm3 (0-0.3); Eosinophils Percent Auto 6.1 % (0-4.4); Hematocrit 38.1 % (37.0-47.0); Hemoglobin 12.8 g/dL (12.0-15.0); Immature Granulocyte Absolute 0.01 K/mm3 (0.00-0.031); Immature Granulocyte Percent A 0.2 % (0-0.5); Lymphocytes Absolute Auto 1.15 K/mm3 (0.9-3.2); Lymphocytes Percent Auto 22.6 % (18.3-44.2); Mean Corpuscular HGB Conc 33.6 g/dl (32-36); Mean Corpuscular Hemoglobin 30.6 pg (26-34); Mean Corpuscular Volume 91.1 fl (80-100); Mean Platelet Volume 9.4 fl (7.4-10.4); Monocytes Absolute Auto 0.6 K/mm3 (0.1-0.6); Monocytes Percent Auto 11.8 % (2.6-8.5); Neutrophils Percent Auto 58.3 % (45.5-73.1); Platelet Count Result 235 k/mm3 (150-375); Red Blood Count 4.18 M/mm3 (4.2-5.4); Red Cell Distribution Width 13.7 % (11.5-14.5); White Blood Count 5.1 K/mm3 (4.5-10.0)
[2023-09-22 10:20] LABS: Alanine Aminotransferase 37 U/L (6-35); Albumin Level 4.4 g/dL (3.5-5.1); Alkaline Phosphatase 74 U/L (38-126); Anion Gap 11 mmol/L (4-12); Aspartate Amino Transferase 29 U/L (14-36); Bilirubin,Total 0.8 mg/dL (0.2-1.3); Blood Urea Nitrogen 15 mg/dL (7-17); Calcium 9.3 mg/dL (8.4-10.2); Carbon Dioxide 23 mmol/L (22-30); Chloride 103 mmol/L (98-107); Estimated Glomerular Filt Rate 55; Glucose 111 mg/dL (65-110); Potassium 3.3 mmol/L (3.4-5.0); Sodium 137 mmol/L (137-145)
[2023-09-23 07:19] LABS: CA 15-3 14 U/mL (<32)
== END 2023-09-22 08:15 | disposition home or self-care (01) ==
PROVIDERS: PCP Family Medicine Adolescent Medicine; Visit Provider Internal Medicine Hematology & Oncology
DX: C50.412 Malignant neoplasm of upper-outer quadrant of left female breast (principal); Z17.0 Estrogen receptor positive status [ER+]
CPT/HCPCS: 36415; 80053; 85025; 86300

== ENCOUNTER 2023-12-08 09:11 | Outpatient (CLI) | payer MEDICARE, SELFPAY ==
--- NOTE | ~2023-12-08 | XR_ITS ---
Right Knee Technique: AP, lateral, and sunrise views were obtained. Clinical History: Osteoarthritis Findings: No fracture or dislocation is seen. There is severe degenerative change of the lateral comp artment with osteophyte formation, joint space narrowing, and remodeling of the lateral tibial platea u articular surface. There is moderate degenerative change at the patellofemoral compartment. There i s mild degenerative change of the medial compartment.. Soft tissues are unremarkable. No joint effusi on is seen. 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 Reviewed, dictated and finalized at location M. Impression: Tricompartmental osteoarthritis, as detailed above, severe in the lateral eliecer rtment.
== END 2023-12-08 09:12 | disposition home or self-care (01) ==
LOC: MICIMG 09:13
PROVIDERS: PCP Family Medicine Adolescent Medicine; Visit Provider Family Medicine Adolescent Medicine
DX: M17.11 Unilateral primary osteoarthritis, right knee (principal)
CPT/HCPCS: 73562

== ENCOUNTER 2023-12-08 09:33 | Outpatient (CLI) | payer MEDICARE, SELFPAY ==
[2023-12-08 09:46] LABS: Basophils Absolute Auto 0.1 K/mm3 (0.0-0.1); Basophils Percent Auto 1.1 % (0.2-1.2); Eosinophils Absolute Auto 0.1 K/mm3 (0-0.3); Eosinophils Percent Auto 2.1 % (0-4.4); Hematocrit 39.2 % (37.0-47.0); Hemoglobin 13.1 g/dL (12.0-15.0); Immature Granulocyte Absolute 0.02 K/mm3 (0.00-0.031); Immature Granulocyte Percent A 0.4 % (0-0.5); Lymphocytes Absolute Auto 1.29 K/mm3 (0.9-3.2); Mean Corpuscular HGB Conc 33.4 g/dl (32-36); Mean Corpuscular Hemoglobin 30.3 pg (26-34); Mean Corpuscular Volume 90.7 fl (80-100); Mean Platelet Volume 9.7 fl (7.4-10.4); Monocytes Absolute Auto 0.7 K/mm3 (0.1-0.6); Monocytes Percent Auto 12.1 % (2.6-8.5); Neutrophils Absolute Auto 3.5 K/mm3 (1.3-6.7); Neutrophils Percent Auto 61.3 % (45.5-73.1); Platelet Count Result 229 k/mm3 (150-375); Red Blood Count 4.32 M/mm3 (4.2-5.4); Red Cell Distribution Width 13.3 % (11.5-14.5); White Blood Count 5.6 K/mm3 (4.5-10.0)
[2023-12-08 11:42] LABS: Alanine Aminotransferase 20 U/L (6-35); Albumin Level 4.4 g/dL (3.5-5.1); Alkaline Phosphatase 50 U/L (38-126); Anion Gap 10 mmol/L (4-12); Aspartate Amino Transferase 25 U/L (14-36); Bilirubin,Total 0.6 mg/dL (0.2-1.3); Blood Urea Nitrogen 18 mg/dL (7-17); Calcium 9.4 mg/dL (8.4-10.2); Carbon Dioxide 27 mmol/L (22-30); Chloride 100 mmol/L (98-107); Estimated Glomerular Filt Rate 55; Glucose 102 mg/dL (65-110); Potassium 3.5 mmol/L (3.4-5.0); Sodium 137 mmol/L (137-145)
[2023-12-10 08:09] LABS: CA 15-3 18 U/mL (<32)
== END 2023-12-08 09:34 | disposition home or self-care (01) ==
LOC: ANHLAB 09:34
PROVIDERS: PCP Family Medicine Adolescent Medicine; Visit Provider Internal Medicine Hematology & Oncology
DX: C50.412 Malignant neoplasm of upper-outer quadrant of left female breast (principal); Z17.0 Estrogen receptor positive status [ER+]
CPT/HCPCS: 36415; 80053; 85025; 86300

== ENCOUNTER 2023-12-08 09:57 | Outpatient (CLI) | payer MEDICARE, SELFPAY ==
--- NOTE | ~2023-12-08 | MMUS_ITS ---
EXAMINATION: US breast LT limited, MM diagnostic joann LT w amalia HISTORY: Follow-up complex fluid collection in the left breast TECHNIQUE: Additional 3-D tomosynthesis images of the left breast were performed and synthetic 2-D im ages were generated. CAD analysis was submitted and interpreted. High resolution Limited left breast ultrasound was performed. COMPARISON: Comparison to multiple prior studies sequentially, with oldest reviewed study dated 12/07. BREAST PARENCHYMAL COMPOSITION: Not dense: There are scattered areas of fibroglandular density. FINDINGS: MAMMOGRAPHIC FINDINGS: There is architectural distortion and asymmetry in the upper outer quadrant of the left breast corres ponding to area of previous lumpectomy and radiation therapy. The area of asymmetry has visibly dimin ished in size postoperatively compared with 12/28/2022. ULTRASOUND: Limited left breast ultrasound: At 3:00, 6 cm from the nipple there is a complex fluid collection elizabeth rounded by a rind of hypoechoic soft tissue. The fluid collection measures 2 x 0.7 x 1.5 cm compared with 2.2 x 2 x 1.1 cm on 06/23/2023 and 2.8 x 1.6 x 2.3 cm on 12/28/2022. There are a few additional s mall cysts and mildly prominent ducts. IMPRESSION: 1. Resolving complex fluid collection at the 3:00 position of the left breast, 6 cm from the nipple b y ultrasound, consistent with benign maturing postoperative seroma/hematoma. 2. Routine yearly screening mammogram and regular clinical breast examination are recommended. BI-RADS Category 2: Benign finding(s). Reviewed, dictated and finalized at location B. IMPRESSION: 1. Resolving complex fluid collection at the 3:00 position of the left breast, 6 cm from the nipple by ultrasound, consistent with benign maturing postoperati ve seroma/hematoma. 2. Routine yearly screening mammogram and regular clinical breast examination a re recommended. BI-RADS Category 2: Benign finding(s).
== END 2023-12-08 09:58 | disposition home or self-care (01) ==
PROVIDERS: PCP Family Medicine Adolescent Medicine; Visit Provider Internal Medicine Hematology & Oncology
DX: R92.8 Other abnormal and inconclusive findings on diagnostic imaging of breast (principal)
CPT/HCPCS: 76642; 77061; 77065; G0279

== ENCOUNTER 2024-04-13 09:51 | Outpatient (CLI) | payer OTHER, SELFPAY ==
--- OUTSIDE RECORDS SUMMARY | 2024-04-13 10:08 | XMS_ITS | Clinical Summary ---
Author Organization [facility] Address [address] [place] [address] Care Team Providers Care Park Worker Supervisor Name Role Phone Unavailable Primary Care Provider Unavailabl e Social History Tobacco Use Types Packs/Day Years Used Date Smoking Tobacco: Never Assessed Comments Unknown Sex and Gender Information Value Date Recorded Sex Assigned at Not on file Legal Sex Female 12:03 PM DIRECTOR RISK Gender Identity Not on file Sexual Orientation Not on file Plan of Treatment Health Maintenance Due Date Last Done Comments Colorectal Cancer Screening Colonoscopy (10 Years) 1955 Hepatitis C 1972 DTaP, Tdap and Td Vaccines ( 1 - Tdap) 1973 Mammogram Screening 1994 Zoster Vaccines (1 of 2) 2004 Dexa Scan (General) 10/26/2019 Pneumococcal Vaccine: 65+ Ye ars (1 of 1 - PCV) 10/26/2019 COVID-19 Vaccine ( - 2023-2 5 season) 2023 Influenza Adult (#1) 2023 RSV Immunization or 60+ Years (1 - 1-dose 75+ series) 2029 Meningococcal B Vaccine Aged Out No l onger eligible based on patient's age to complete this topic Meningococcal Vaccine Aged Out No ravinder lamine eligible based on patient's age to complete this topic RSV Immunizations Under 20 Months Aged Out No longer eligible based on patient's age to complete this topic
--- OUTSIDE RECORDS SUMMARY | 2024-04-13 10:08 | XMS_ITS | Clinical Summary ---
Author Organization [facility] Address [address] [place] [address] Care Team Providers Care Hardness Inspector Name Role Phone Enrico Cassidy MD Primary Care Provider [phone] Allergies Active Allergy Reactions Criticality Noted Date Comments Sulfa (Sulfonamide Antibiotics) Rash Low 05/07 Medications atorvastatin (LIPITOR) 20 mg tablet Take 20 mg by mouth daily. 03/05/2022 Active losartan (COZAAR) 50 mg tablet Take 50 mg by mouth daily. 03/05/2022 Active multivitamin (DAILY-DOUGLAS) tablet Take 1 Tablet by mouth daily. Active cyanocobalamin (VITAMIN B-12) 100 mcg tablet Take 100 mcg by mouth daily. Active CALCIUM CARBONATE-VITAMI N D3 ORAL Take by mouth. Active ASCORBIC ACID, VITAMIN C, ORAL Take by mouth. Active CALCIUM ACETATE,PHOSPHAT BIND, ORAL Take by mouth. Active MAGNESIUM CITRATE ORAL Take by mouth. Active zinc sulfate 50 mg zinc (220 mg) capsule Take 220 mg by mouth daily. Active hydroCHLOROthiaz tao 25 mg tablet Take 1 Tablet by mouth daily. 05/25/2023 Active tamoxifen (NOLVADEX) 20 mg tablet Take 1 Tablet (20 mg) by mouth daily. 90 Tablet 3 03/12/2024 Active Active Problems No known active problems Encounters Date Type Department Care Team Description 03/29/2024 External Device Data STL ABSTRACTION Provider, Abstract 03/12/2024 Refill [facility] Oncology and Hematology - [place] [address] [place] [address] Houston Perla MD from Last 3 Months Family History Medical History Relation Name Comments No Known Problems Brother Heart Disease Father Breast Cancer Mother Diabetes Mother No Known Problems Son Relation Name Status Comments Brother Alive Father Mother Son Alive Social History Tobacco Use Types Packs/Day Years Used Date Smoking Tobacco: Never Smokeless Tobacco: Never Tobacco Cessation:Counseling Given: Not Answered Alcohol Use Standard Drinks/Week Comments Yes 1 (1 standard drink = 0.6 oz pur e alcohol) Comments Unknown Sex and Gender Information Value Date Recorded Sex Assigned at Not on file Legal Sex Female 12:49 PM CDT Gender Identity Not on file Sexual Orientation Not on file Last Filed Vital Signs Vital Sign Reading Time Taken Comments Blood Pressure 119/93 12/15/2023 11:02 AM CDT Pulse 93 12/15/2023 11:02 AM CDT Temperature 36.7 C (98 F) 12/15/2023 10:58 AM CDT Respiratory Rate 16 12/15/2023 10:58 AM CDT Oxygen Saturation 93% 12/15/2023 10:58 AM CDT Inhaled Oxygen Concentration - - Weight 93.9 kg (207 lb) 12/15/2023 10:58 AM CDT Height 167.6 cm (5' 6 ) 05/28/2022 9:07 AM CDT Body Mass Index 33.41 05/28/2022 9:07 AM CDT Plan of Treatment Upcoming Encounters Date Type Department Care Team (Late st Contact Info) Description 04/21/2024 10:00 AM DATA MANAGEMENT ENGINEER Office Visit [facility] Oncology and Hematology - [place] [address] [facility] [address] [place] [address] Houston Perla MD [address] [facility] [address] [place] [address] Health Maintenance Due Date Last Done Comments Pre-Diabetes and Diabetes Screening 1955 DTAP/TDAP/TD VACCINES (1 - Tdap) 1973 COLORECTAL SCREENING 10/26/1999 Colorectal Cancer Screening 10/26/1999 FIT-DNA Q 3 years 10/26/1999 FIT/FOBT Q 1 year 10/26/1999 Flex Sig/CT Colonography Q 5 years 10/26/1999 PNEUMOCOCCAL VACCINE 65+ YEA RS (1 of 1 - PCV) 2004 ZOSTER VACCINE (1 of 2) 2004 OSTEOPOROSIS SCREENING 10/26/2019 INFLUENZA VACCINE (#1) 2023 [place] Prev entative Visit/Annual Wellness Visit 03/08/2024 BREAST CANCER SCREENING 12/07/2024 12/08/2023, 06/22 RSV VACCINE (60+ or ) (1 - 1-dose 75+ series) 2029 Procedures Procedure Name Priority Date/Time Associated Diagnosis Comments MAMMO DIAGNOSTIC UNI LEFT W OR WO CAD Routine 12/08/2023 4:08 PM CDT from Last 3 Months or Most Recently Relevant to Health Maintenance Results * MAMMO DIAGNOSTIC UNI LEFT W OR WO CAD (12/08/2023 4:08 PM CDT) Anatomical Region Laterality Modality Breast Left Other Houston Perla MD MAMMO ORDERABLES Final Result from Last 3 Months or Most Recently Relevant to Health Maintenance Insurance [address] [place], [place] [id number] [facility] [id number] Member Subscriber Plan / Payer (Ef fective 2022-Present) Name:Chen Dickerson Relation to Subscriber:Self Name:Chen Dickerson Payer ID:[id number] (NAIC) Type:PPO Address: [place] [id number] Care Teams Hardness Inspector Relationship Specialty Start Date End Date Enrico Cassidy MD [address] [address] PCP - General Family Practice 05/28/22
[2024-04-13 10:14] LABS: Basophils Percent Auto 0.9 % (0.2-1.2); Eosinophils Absolute Auto 0.2 K/mm3 (0-0.3); Eosinophils Percent Auto 3.5 % (0-4.4); Hematocrit 36.5 % (37.0-47.0); Hemoglobin 12.3 g/dL (12.0-15.0); Immature Granulocyte Absolute 0.01 K/mm3 (0.00-0.031); Immature Granulocyte Percent A 0.2 % (0-0.5); Lymphocytes Absolute Auto 0.94 K/mm3 (0.9-3.2); Lymphocytes Percent Auto 20.4 % (18.3-44.2); Mean Corpuscular HGB Conc 33.7 g/dl (32-36); Mean Platelet Volume 9.8 fl (7.4-10.4); Monocytes Absolute Auto 0.6 K/mm3 (0.1-0.6); Monocytes Percent Auto 12.8 % (2.6-8.5); Neutrophils Absolute Auto 2.9 K/mm3 (1.3-6.7); Neutrophils Percent Auto 62.2 % (45.5-73.1); Platelet Count Result 207 k/mm3 (150-375); Red Cell Distribution Width 13.6 % (11.5-14.5); White Blood Count 4.6 K/mm3 (4.5-10.0)
[2024-04-13 12:49] LABS: Alanine Aminotransferase 31 U/L (6-35); Albumin Level 3.9 g/dL (3.5-5.1); Alkaline Phosphatase 50 U/L (38-126); Anion Gap 12 mmol/L (4-12); Aspartate Amino Transferase 27 U/L (14-36); Bilirubin,Total 0.7 mg/dL (0.2-1.3); Blood Urea Nitrogen 19 mg/dL (7-17); Calcium 9.2 mg/dL (8.4-10.2); Carbon Dioxide 24 mmol/L (22-30); Chloride 102 mmol/L (98-107); Estimated Glomerular Filt Rate 54; Glucose 117 mg/dL (65-110); Potassium 3.7 mmol/L (3.4-5.0); Sodium 138 mmol/L (137-145)
[2024-04-15 01:59] LABS: CA 15-3 14 U/mL (<32)
== END 2024-04-13 09:52 | disposition home or self-care (01) ==
LOC: ANHLAB 09:52
PROVIDERS: PCP Family Medicine Adolescent Medicine; Visit Provider Internal Medicine Hematology & Oncology
DX: C50.412 Malignant neoplasm of upper-outer quadrant of left female breast (principal); Z17.0 Estrogen receptor positive status [ER+]
CPT/HCPCS: 36415; 80053; 85025; 86300

== ENCOUNTER 2024-08-16 08:24 | Outpatient (CLI) | payer OTHER, SELFPAY ==
--- OUTSIDE RECORDS SUMMARY | 2024-08-16 08:39 | XMS_ITS | Referral Summary ---
Author Organization [facility] Address [address] [place] [address] Care Team Providers Care Loading Inspector Name Role Phone Enrico Cassidy MD Primary Care Prov ider Encounters Date Type Department Care Team Description 08/09/2024 7:02 AM CDT - 08/09/2024 11:59 PM CDT Hospital Encounter [facility] at [address], [address] [place] [address] Avelina Mckinley MD Chronic pain of right knee (Primary Dx); Acute knee pain, unspecified laterality; Primary osteoarthritis of right knee Discharge Disposition: Discharge to home or self care 07/10/2024 Telephone [facility] at [address], [address] [place] [address] Guerita Garay RN PMC Intake Assessment 07/07/2024 8:14 AM CDT - 07/07/2024 11:59 PM CDT Hospital Encounter [facility] [address] [place] [address] [address] [place] [address] Acute knee pain, unspecified laterality; Right knee pain, unspecified chronicity Discharge Disposition: Discharge to home or self care 07/07/2024 9:00 AM CDT Office Visit [facility] Orthopaedic Surgery [address] [place] [address] Medical Office Building [address] [place] [address] Timmy Ashley MD Primary osteoarthritis of right knee (Primary Dx); Right knee pain, unspecified chronicity; Acute knee pain, unspecified laterality from Last 3 Months Allergies Active Allergy Reactions Criticality Noted Date Comments Sulfa (Sulfonamide Antibiotics) Rash Medium 05/07 Medications cyanocobalamin (Vitamin B-12) 100 mcg tablet Take 1 tablet (100 mcg total) by mouth daily Active hydroCHLOROthia zide (HYDRODIURIL) 25 mg tablet Take 1 tablet (25 mg total) by mouth daily 05/25/2023 Active losartan (COZAAR) 50 mg tablet Take 1 tablet (50 mg total) by mouth daily 03/05/2022 Active meloxicam (MOBIC) 15 mg tablet TAKE 1 TABLET BY MOUTH ONCE DAILY STOP ALEVE 05/22/2024 Active multivitamin tablet Take 1 tablet by mouth daily Active tamoxifen (NOLVADEX) 20 mg tablet 04/22/2024 Active zinc sulfate (ZINCATE) 50 mg zinc (220 mg) capsule Take 1 capsule (220 mg total) by mouth daily Active atorvastatin (LIPITOR) 20 mg tablet Take 1 tablet (20 mg total) by mouth daily Active naproxen sodium 220 mg capsule Take by mouth Active Active Problems No known active problems Social History Tobacco Use Types Packs/Day Years Used Date Smoking Tobacco: Never Smokeless Tobacco: Never Tobacco Cessation:Counseling Given: Not Answered AUDIT-C Answer Date Recorded Q1: How often do you have a drink containing alc ohol? 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 Gender Identity Not on file Sexual Orientation Not on file Last Filed Vital Signs Vital Sign Reading Time Taken Comments Blood Pressure 124/76 08/09/2024 7:03 AM CDT Pulse 96 08/09/2024 7:03 AM CDT Temperature 35.7 C (96.3 F) 08/09/2024 7:03 AM CDT Respiratory Rate 18 08/09/2024 7:03 AM CDT Oxygen Saturation 99% 08/09/2024 7:03 AM CDT Inhaled Oxygen Concentration - - Weight 88.9 kg (196 lb) 08/09/2024 7:03 AM CDT Height 161.3 cm (5' 3.5) 08/09/2024 7:03 AM CDT Body Mass Index 34.18 08/09/2024 7:03 AM CDT Plan of Treatment Not on file Goals Goal Patient Goal Type Associated Problems Recent Progress Patient-Stated? Author CCM Chronic Pain Care Plan Chronic Care Management No Sydni Gurrola RN Note: Problem: Chronic Pain Goals: 1. Minimize further functional decline 2. Maximize quality of life 3. Control pain Strategies: - Activity/exercise program recommendation - Conservative stepwise pain medicine strategy with multi-disciplinary approach - Recommend healthy lifestyle strategies and compensatory methods as needed Reduce the likelihood of falling Lifestyle No Sydni Gurrola RN Note: Below are four things you can do to prevent falls: Begin an exercise program to improve your leg strength & balance Ask your doctor or pharmacist to review your medicines Get annual eye check-ups & update your eyeglasses Make your home safer by: Removing clutter & tripping hazards Putting railings on all stairs & adding grab bars in the bathroom Having good lighting, especially on stairs Contact your local community or senior center for information on exercise, fall prevention programs, or options for improving home safety. Procedures Procedure Name Priority Date/Time Associated Diagnosis Comments XR KNEE RIGHT 4 OR MORE VIEWS Schedule Routine, Read Routine (OP Routine) 07/07/2024 8:33 AM CDT Right knee pain, unspecified chronicity XR PELVIS 1 OR 2 VIEWS Schedule Routine, Read Routine (OP Routine) 07/07/2024 8:33 AM CDT Acute knee pain, unspecified laterality from Last 3 Months Results * XR Pelvis 1 or 2 Views (07/07/2024 8:33 AM CDT) Anatomical Region Laterality Modality Body, Pelvis N/A Computed Radiogr aphy 07/07/2024 9:18 AM CDT Impressions 07/07/2024 1:51 PM CDT 1. Severe lateral compartment predominant tricompartmental osteoarthritis of the right knee with a small right knee joint effusion. 2. Mild bilateral hip osteoarthritis. 3. Probable fibrous lesion within the right proximal tibia without aggressive features. Correlation with prior imaging may be helpful. Dictated by: Kevon Celis MD The radiology attending physician has personally reviewed this study, and had reviewed and/or edited this written report and agrees with it. Electronically signed by: Natan Suárez M.D. Narrative 07/07/2024 1:51 PM CDT EXAMINATION: 1. XR KNEE RIGHT 4 OR MORE VIEWS, 2. XR PELVIS 1 OR 2 VIEWS HISTORY: Right knee pain, FINDINGS: No comparison available. Right knee: There is severe lateral compartment predominant tricompartmental osteoarthritis of the right knee. There is a small right knee joint effusion. There is no acute fracture or dislocation. Probable fibrous lesion within the right proximal tibia without aggressive features. Pelvis: There is mild bilateral hip osteoarthritis. There is no acute fracture. No dislocation. Procedure Note Natan Barrios MD - 07/07/2024 EXAMINATION: 1. XR KNEE RIGHT 4 OR MORE VIEWS, 2. XR PELVIS 1 OR 2 VIEWS HISTORY: Right knee pain, FINDINGS: No comparison available. Right knee: There is severe lateral compartment predominant tricompartmental osteoarthritis of the right knee. There is a small right knee joint effusion. There is no acute fracture or dislocation. Probable fibrous lesion within the right proximal tibia without aggressive features. Pelvis: There is mild bilateral hip osteoarthritis. There is no acute fracture. No dislocation. IMPRESSION: 1. Severe lateral compartment predominant tricompartmental osteoarthritis of the right knee with a small right knee joint effusion. 2. Mild bilateral hip osteoarthritis. 3. Probable fibrous lesion within the right proximal tibia without aggressive features. Correlation with prior imaging may be helpful. Dictated by: Kevon Celis MD The radiology attending physician has personally reviewed this study, and had reviewed and/or edited this written report and agrees with it. Electronically signed by: Natan Suárez M.D. Tmimy Ashley MD IMG XR PROCEDURES Final Result * XR Knee Right 4 or More Views (07/07/2024 8:33 AM CDT) Anatomical Region Laterality Modality Lower Extremities, Knee Right Computed Radiography 07/07/2024 9:18 AM CDT Impressions 07/07/2024 1:51 PM CDT 1. Severe lateral compartment predominant tricompartmental osteoarthritis of the right knee with a small right knee joint effusion. 2. Mild bilateral hip osteoarthritis. 3. Probable fibrous lesion within the right proximal tibia without aggressive features. Correlation with prior imaging may be helpful. Dictated by: Kevon Celis MD The radiology attending physician has personally reviewed this study, and had reviewed and/or edited this written report and agrees with it. Electronically signed by: Natan Suárez M.D. Narrative 07/07/2024 1:51 PM CDT EXAMINATION: 1. XR KNEE RIGHT 4 OR MORE VIEWS, 2. XR PELVIS 1 OR 2 VIEWS HISTORY: Right knee pain, FINDINGS: No comparison available. Right knee: There is severe lateral compartment predominant tricompartmental osteoarthritis of the right knee. There is a small right knee joint effusion. There is no acute fracture or dislocation. Probable fibrous lesion within the right proximal tibia without aggressive features. Pelvis: There is mild bilateral hip osteoarthritis. There is no acute fracture. No dislocation. Procedure Note Chapito Suárez, Natan Zuniga MD - 07/07/2024 EXAMINATION: 1. XR KNEE RIGHT 4 OR MORE VIEWS, 2. XR PELVIS 1 OR 2 VIEWS HISTORY: Right knee pain, FINDINGS: No comparison available. Right knee: There is severe lateral compartment predominant tricompartmental osteoarthritis of the right knee. There is a small right knee joint effusion. There is no acute fracture or dislocation. Probable fibrous lesion within the right proximal tibia without aggressive features. Pelvis: There is mild bilateral hip osteoarthritis. There is no acute fracture. No dislocation. IMPRESSION: 1. Severe lateral compartment predominant tricompartmental osteoarthritis of the right knee with a small right knee joint effusion. 2. Mild bilateral hip osteoarthritis. 3. Probable fibrous lesion within the right proximal tibia without aggressive features. Correlation with prior imaging may be helpful. Dictated by: Kevon Celis MD The radiology attending physician has personally reviewed this study, and had reviewed and/or edited this written report and agrees with it. Electronically signed by: Natan Suárez M.D. Timmy Ashley MD IMG XR PROCEDURES Final Result from Last 3 Months Insurance [employer] ADVANT[employer] CHOICE PPO [facility] [email or web address] CHOICE PPO Member Subscriber Plan / Payer (Ef fective 2024-Present) Name:Chen Dickerson Ann Relation to Subscriber:Self Name:Chen Dickerson Ann Payer ID:[id number] (NAIC) Type:MEDICARE RISK OTHER Address: [place] [id number] Care Teams Loading Inspector Relationship Specialty Start Date End Date Enrico Cassidy MD [address] [place] [address] PCP - General Family Medicine 05/10/24
--- OUTSIDE RECORDS SUMMARY | 2024-08-16 08:39 | XMS_ITS | Clinical Summary ---
Author Organization [facility] aneudy [facility] Address [address] [facility] [place] [address] Care Team Providers Care Pipeline Superintendent Division Name Role Phone Enrico Cassidy MD Primary Care Provider [phone] Allergies Active Allergy Reactions Criticality Noted Date [...] mouth daily. 90 Tablet 3 03/12/2024 Active meloxicam (MOBIC) 15 mg tablet Take 15 mg by mouth daily. 03/29/2024 Active Active Problems No known active problems Encounters Date Type Department Care Team Description 07/26/2024 External Device Data ST[facility] ABSTRACTION Provider, Abstract 07/25/2024 External Device Data [facility] ABSTRACTION Provider, Abstract 05/24/2024 External Device Data [facility] ABSTRACTION Provider, Abstract from Last 3 Months Family History Medical [...] Sign Reading Time Taken Comments Blood Pressure 130/88 04/21/2024 9:51 AM CONSTRUCTION ADMINISTRATIVE ASSISTANT Pulse 60 04/21/2024 9:51 AM CONSTRUCTION ADMINISTRATIVE ASSISTANT Temperature 36.1 C (96.9 F) 04/21/2024 9:51 AM CONSTRUCTION ADMINISTRATIVE ASSISTANT Respiratory Rate 16 04/21/2024 9:51 AM CONSTRUCTION ADMINISTRATIVE ASSISTANT Oxygen Saturation 91% 04/21/2024 9:51 AM CONSTRUCTION ADMINISTRATIVE ASSISTANT Inhaled Oxygen Concentration - - Weight 89.8 kg (198 lb) 04/21/2024 9:51 AM CONSTRUCTION ADMINISTRATIVE ASSISTANT Height 167.6 cm (5' 6) 05/28/2022 9:07 AM CDT Body Mass Index 31.96 05/28/2022 9:07 AM CDT Plan of Treatment Upcoming Encounters Date Type Department Care Team (Late st Contact Info) Description 08/25/2024 9:15 AM CDT Office Visit [facility] Oncology and Hematology - [place] [address] [facility] [address] [place] [address] Houston Perla MD [address] [facility] [address] [place] [address] Health Maintenance Due Date Last Done Comments Pre-Diabetes and Diabetes Screening 1954 DTAP/TDAP/TD VACCINES (1 - Tdap) 1973 COLORECTAL SCREENING 10/26/1999 Colorectal Cancer Screening 10/26/1999 FIT-DNA Q 3 years 10/26/1999 FIT/FOBT Q 1 year 10/26/1999 Flex Sig/CT Colonography Q 5 years 10/26/1999 PNEUMOCOCCAL VACCINE 50+ YEA RS (1 of 1 - PCV) 2004 ZOSTER VACCINE (1 of 2) 2004 OSTEOPOROSIS SCREENING 10/26/2019 INFLUENZA VACCINE (#1) 2023 Medicare Advantage ([place]) Prev entative Visit/Annual Wellness Visit 03/08/2024 BREAST [...] CDT) Anatomical Region Laterality Modality Breast Left Mammography Houston Perla MD MAMMO ORDERABLES Final Result from Last 3 Months or Most Recently Relevant to Health Maintenance Insurance [address] Care Teams Pipeline Superintendent Division Relationship Specialty Start Date End Date Enrico Cassidy MD PCP - General Family Practice 05/28/22
--- OUTSIDE RECORDS SUMMARY | 2024-08-16 08:39 | XMS_ITS | Clinical Summary ---
Author Organization [facility] Address [address] [place] [address] [place] [address] Care Team Providers Care Homemaking Rehabilitation Consultant Name Role Phone Enrico Cassidy MD Primary Care Prov ider Allergies Active Allergy Reactions Criticality Noted Date [...] CDT Hospital Encounter [facility] at [facility] [address] [facility] [address] [place] [address] Avelina Mckinley MD Chronic pain of right knee (Primary Dx); Acute knee pain, unspecified laterality; Primary osteoarthritis of right knee Discharge Disposition: Discharge to home or self care 07/10/2024 Telephone [facility] at [facility] [address] [facility] [address], [address] [place] [address] Guerita Garay RN PMC Intake Assessment 07/07/2024 9:00 AM CDT Office Visit [facility] Orthopaedic Surgery [address] [place] [address] Medical Office Building [address] [place] [address] Timmy Ashley MD Primary osteoarthritis of right knee (Primary Dx); Right knee pain, unspecified chronicity; Acute knee pain, unspecified laterality 07/07/2024 8:14 AM CDT - 07/07/2024 11:59 PM CDT Hospital Encounter [facility] [address] [place] [address] [address] [place] [address] Acute knee pain, unspecified laterality; Right knee pain, unspecified chronicity Discharge Disposition: Discharge to home or self care from Last 3 Months Social History Tobacco Use Types Packs/Day Years [...] on file 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 Gender Identity Not on file Sexual Orientation Not on file Obstetrics History Last Filed Vital Signs Vital Sign Reading [...] 08/09/2024 7:03 AM CDT Plan of Treatment Health Maintenance Due Date Last Done Comments Breast Cancer Screening-Mammogram 1955 Colon Cancer Screening-Colonoscopy 1954 Depression Screening 1954 Hepatitis C Screening 1954 Osteoporosis Screening-Bone Density Scan 1954 Hepatitis B Screening 1972 Pneumococcal vaccine 65+ (1 of 2 - PCV) 1973 Zoster Vaccine (1 of 2) 1973 Well Visit 65+ 10/26/2019 Covid-19 Vaccine (7 - Pfizer risk 2023- season) 2024 12/20/2023, 12/28/2022, 12/11/2021, Additional history exists Fall Risk Assessment 08/09/2025 08/09/2024 DTaP/Tdap/Td Vaccine (2 - Td or Tdap) 05/06/2033 05/07/2023 Influenza Vaccine Completed 12/20/2023, , 12/04/2021 Goals Goal Patient Goal Type Associated Problems Recent Progress Patient-Stated? Author CCM Chronic Pain Care Plan Chronic Care Management No Sydni Gurrola, KRISTI Note: Problem: Chronic Pain Goals: 1. Minimize further functional decline 2. Maximize quality of life 3. Control pain Strategies: - Activity/exercise program recommendation - Conservative stepwise pain medicine strategy with multi-disciplinary approach - Recommend healthy lifestyle strategies and compensatory methods as needed Reduce the likelihood of falling Lifestyle No Sydni Gurrola, KRISTI Note: Below are four things you can [...] on stairs Contact your local community or [facility] for information on exercise, fall prevention programs, [...] fracture. No dislocation. Procedure Note Chapito Suárez, aNtan Zuniga MD - 07/07/2024 EXAMINATION: 1. XR [...] Final Result from Last 3 Months Insurance [employer] PPO [employer] CHOICE PPO Care Teams Homemaking Rehabilitation Consultant Relationship Specialty Start Date End Date Enrico Cassidy MD [address] [place] [address] PCP - General Family Medicine 05/10/24
[2024-08-16 08:44] LABS: Basophils Percent Auto 0.9 % (0.2-1.2); Eosinophils Absolute Auto 0.2 K/mm3 (0-0.3); Eosinophils Percent Auto 5.1 % (0-4.4); Hematocrit 37.6 % (37.0-47.0); Hemoglobin 12.5 g/dL (12.0-15.0); Immature Granulocyte Absolute 0.01 K/mm3 (0.00-0.031); Immature Granulocyte Percent A 0.2 % (0-0.5); Lymphocytes Absolute Auto 0.98 K/mm3 (0.9-3.2); Lymphocytes Percent Auto 22.7 % (18.3-44.2); Mean Corpuscular HGB Conc 33.2 g/dl (32-36); Mean Corpuscular Hemoglobin 30.4 pg (26-34); Mean Corpuscular Volume 91.5 fl (80-100); Mean Platelet Volume 9.7 fl (7.4-10.4); Monocytes Absolute Auto 0.5 K/mm3 (0.1-0.6); Monocytes Percent Auto 10.6 % (2.6-8.5); Neutrophils Absolute Auto 2.6 K/mm3 (1.3-6.7); Neutrophils Percent Auto 60.5 % (45.5-73.1); Platelet Count Result 196 k/mm3 (150-375); Red Blood Count 4.11 M/mm3 (4.2-5.4); Red Cell Distribution Width 13.6 % (11.5-14.5); White Blood Count 4.3 K/mm3 (4.5-10.0)
[2024-08-16 10:32] LABS: Alanine Aminotransferase 30 U/L (6-35); Albumin Level 4.1 g/dL (3.5-5.1); Alkaline Phosphatase 50 U/L (38-126); Anion Gap 9 mmol/L (4-12); Aspartate Amino Transferase 32 U/L (14-36); Bilirubin,Total 0.6 mg/dL (0.2-1.3); Blood Urea Nitrogen 20 mg/dL (7-17); Calcium 9.4 mg/dL (8.4-10.2); Carbon Dioxide 23 mmol/L (22-30); Chloride 106 mmol/L (98-107); Estimated Glomerular Filt Rate 52; Glucose 99 mg/dL (65-110); Sodium 138 mmol/L (137-145); Total Protein 6.8 g/dL (6.3-8.2)
[2024-08-18 01:48] LABS: CA 15-3 14 U/mL (<32)
== END 2024-08-16 08:25 | disposition home or self-care (01) ==
LOC: ANHLAB 08:25
PROVIDERS: PCP Family Medicine Adolescent Medicine; Visit Provider Internal Medicine Hematology & Oncology
DX: C50.412 Malignant neoplasm of upper-outer quadrant of left female breast (principal); Z17.0 Estrogen receptor positive status [ER+]
CPT/HCPCS: 36415; 80053; 85025; 86300

== ENCOUNTER 2024-09-15 14:50 | Outpatient (CLI) | payer OTHER, SELFPAY ==
--- NOTE | ~2024-09-15 | MM_ITS ---
EXAMINATION: MM screening joann BI w amalia HISTORY: Screening. Status post left lumpectomy for breast cancer. TECHNIQUE: Craniocaudal and mediolateral oblique 3-D tomosynthesis images were obtained and synthetic 2-D images were generated. CAD analysis was submitted and interpreted. COMPARISON: Comparison to multiple prior studies sequentially, with oldest reviewed study dated 10/2022. BREAST PARENCHYMAL COMPOSITION: Not dense: There are scattered areas of fibroglandular density. FINDINGS: Stable architectural distortion left breast consistent with previous lumpectomy site. There is no evidence of suspicious mass, calcification, or architectural distortion to suggest malignancy in either breast. There has been no suspicious interval change. IMPRESSION: 1. No mammographic evidence of malignancy. 2. Recommend routine screening mammography in one year. BI-RADS Category 2: Benign finding(s). Reviewed, dictated and finalized at location []
--- OUTSIDE RECORDS SUMMARY | 2024-09-15 14:54 | XMS_ITS | Clinical Summary ---
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
--- OUTSIDE RECORDS SUMMARY | 2024-09-15 14:54 | XMS_ITS | Clinical Summary ---
Author Organization [facility] Address [address] [place] [address] Care Team Providers Care News Videotape Editor Name Role Phone Enrico Cassidy MD Primary [...] Encounters Date Type Department Care Team Description 09/07/2024 Orders Only Pain Management Center at [facility] [address] [facility] [address], [address] [place] [address] Avelina Mckinley MD Chronic pain of right knee (Primary Dx) 09/06/2024 6:58 AM CDT - 09/06/2024 11:59 PM CDT Hospital Encounter [facility] at [address], [address] [place], [place] [address] Avelina Mckinley MD Chronic pain of right knee Discharge Disposition: Discharge to home or self care 09/06/2024 Telephone [facility] at [address], [address] [place], [place] [address] Avelina Mckinley MD pain diary call 08/09/2024 7:02 AM CDT - 08/09/2024 11:59 PM CDT Hospital Encounter [facility] at [address], [address] [place] [address] Avelina Mckinley MD Chronic pain of right knee (Primary Dx); Acute knee pain, unspecified laterality; Primary osteoarthritis of right knee Discharge Disposition: Discharge to home or self care 07/10/2024 Telephone [facility] at [address], [address] [place], [place] [address] Guerita Garay RN PMC Intake Assessment 07/07/2024 9:00 AM CDT Office Visit [facility] Orthopaedic Surgery [address] [place] [address] Medical Office Building [address] [place] [phone] Timmy Ashley MD Primary osteoarthritis of right knee (Primary Dx); Right knee pain, unspecified chronicity; Acute knee pain, unspecified laterality 07/07/2024 8:14 AM CDT - 07/07/2024 11:59 PM CDT Hospital Encounter [facility] Radiology [address] [place] [address] [address] [place] [phone] Acute knee pain, unspecified laterality; Right knee [...] on file 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 Gender Identity Not on file Sexual Orientation Not on file Obstetrics History Last Filed Vital Signs Vital Sign Reading Time Taken Comments Blood Pressure 153/84 09/06/2024 8:01 AM CDT Pulse 90 09/06/2024 8:01 AM CDT Temperature 36.3 C (97.3 F) 09/06/2024 7:05 AM CDT Respiratory Rate 18 09/06/2024 8:01 AM CDT Oxygen Saturation 98% 09/06/2024 8:01 AM CDT Inhaled Oxygen Concentration - - Weight 88.9 kg (196 lb) 09/06/2024 7:05 AM CDT Height 160 cm (5' 3) 09/06/2024 7:05 AM CDT Body Mass Index 34.72 09/06/2024 7:05 AM CDT Plan of Treatment Health Maintenance [...] 2024 12/20/2023, 12/28/2022, 12/11/2021, Additional history exists Influenza Vaccine (#1) 2024 , 12/28/2022, 12/04/2021 Fall Risk Assessment 09/06/2025 09/06/2024, 08/10/19 25 DTaP/Tdap/Td Vaccine (2 - Td or Tdap) 05/06/2033 05/07/2023 Goals Goal Patient Goal Type Associated Problems [...] on stairs Contact your local community or [facility] for information on exercise, fall prevention programs, or options for improving home safety. Procedures Procedure Name Priority Date/Time Associated Diagnosis Comments PAIN MGMT IMAGING GENICULAR NERVE BLOCK Routine 09/06/2024 7:56 AM CDT Chronic pain of right knee XR KNEE RIGHT 4 OR MORE VIEWS Schedule Routine, Read Routine (OP Routine) 07/07/2024 8:33 AM CDT Right knee pain, unspecified chronicity XR PELVIS 1 OR 2 VIEWS Schedule Routine, Read Routine (OP Routine) 07/07/2024 8:33 AM CDT Acute knee pain, unspecified laterality from Last 3 Months Results * Imaging Genicular Nerve Block (59252) (09/06/2024 7:56 AM CDT) Narrative RAD_PACS[facility] - 09/06/2024 8:19 AM CDT The images from this study are not interpreted by Radiology. Please refer to the physician's procedure / OR operative note. us Avelina Mckinley MD IMG PAIN MGMT PROCEDURES Final Result RAD_PACS[facility] * XR Pelvis 1 or 2 Views [...] by: Natan Suárez M.D. Timmy Ashley MD IM XR PROCEDURES Final Result * XR Knee [...] Final Result from Last 3 Months Insurance [employer] PPO [employer] PPO Care Teams News Videotape Editor Relationship Specialty Start Date End Date Enrico Cassidy MD [address] [place] [address] PCP - General Family Medicine 05/10/24
--- OUTSIDE RECORDS SUMMARY | 2024-09-15 14:54 | XMS_ITS | Clinical Summary ---
Author Organization [facility] Address [address] [place] [address] Care Team Providers Care Rehabilitation Services Counselor Name Role Phone Enrico Cassidy MD Primary Care Provider +1- [phone] Allergies Active Allergy Reactions Criticality Noted Date Comments Sulfa (Sulfonamide Antibiotics) Rash Low 05/07 Medications atorvastatin (LIPITOR) 20 mg tablet Take 20 mg by mouth daily. 2 Active losartan (COZAAR) 50 mg tablet Take 50 mg by mouth daily. 2 Active multivitamin (DAILY-DOUGLAS) tablet Take 1 Tablet by mouth daily. Active cyanocobalamin (VITAMIN B-12) 100 mcg tablet Take 100 mcg by mouth daily. Active CALCIUM CARBONATE-VITAM IN D3 ORAL Take by mouth. Active ASCORBIC ACID, VITAMIN C, ORAL Take by mouth. Active CALCIUM ACETATE,PHOSPHA T BIND, ORAL Take by mouth. Active MAGNESIUM CITRATE ORAL Take by mouth. Active zinc sulfate 50 mg zinc (220 mg) capsule Take 220 mg by mouth daily. Active hydroCHLOROthia zide 25 mg tablet Take 1 Tablet by mouth daily. 4 Active meloxicam (MOBIC) 15 mg tablet Take 15 mg by mouth daily. 5 Active tamoxifen (NOLVADEX) 20 mg tablet Take 1 Tablet (20 mg) by mouth daily. 90 Tablet 3 5 Active tamoxifen (NOLVADEX) 20 mg tablet Take 1 Tablet (20 mg) by mouth daily. 90 Tablet 3 5 08/26/19 25 Discontinu ed(Reorder ) Active Problems No known active problems Encounters Date Type Department Care Team Description 08/25/2024 9:15 AM CDT Office Visit [facility] Oncology and Hematology - [place] [address] [place] [address] Houston Perla MD Malignant neoplasm of upper-outer quadrant of left breast in female, estrogen receptor positive (CMS/HCC) (Primary Dx) 08/18/2024 Orders Only [facility] Oncology and Hematology - [place] [address] [place] [id number] Houston Perla MD 08/16/2024 Orders Only [facility] Oncology and Hematology - [place] [address] [place] [address] Houston Perla MD 07/26/2024 External Device Data STL ABSTRACTION Provider, [...] Sign Reading Time Taken Comments Blood Pressure 125/88 08/25/2024 8:57 AM CDT Pulse 97 08/25/2024 8:57 AM CDT Temperature 37.6 C (99.7 F) 08/25/2024 8:57 AM CDT Respiratory Rate 15 08/25/2024 8:57 AM CDT Oxygen Saturation 95% 08/25/2024 8:57 AM CDT Inhaled Oxygen Concentration - - Weight 88.4 kg (194 lb 12.8 oz) 08/25/2024 8:57 AM CDT Height 167.6 cm (5' 6) 05/28/2022 9:07 AM CDT Body Mass Index 31.44 05/28/2022 9:07 AM CDT Plan of Treatment Upcoming Encounters Date Type Department Care Team (Late st Contact Info) Description 01/05/2025 8:45 AM CDT Office Visit [facility] Oncology and Hematology - [place] [address] [place] [address] Houston Perla MD [address] [facility] [address] [place] [address] Health Maintenance Due Date Last [...] 2004 OSTEOPOROSIS SCREENING 10/26/2019 INFLUENZA VACCINE (#1) 2024 BREAST CANCER SCREENING 12/07/2024 12/08/2023, 06/22 RSV VACCINE (60+ or ) (1 - 1-dose 75+ series) 2029 Procedures Procedure Name Priority Date/Time Associated Diagnosis Comments COMPREHENSIVE METABOLIC PANEL Routine 08/16/2024 12:43 PM CDT CHG CA 15 3 Routine 08/16/2024 10:40 AM CDT MAMMO DIAGNOSTIC UNI LEFT W OR WO CAD Routine 12/08/2023 4:08 PM CDT from Last 3 Months or Most Recently Relevant to Health Maintenance Results * COMPREHENSIVE METABOLIC PANEL (08/16/2024 12:43 PM CDT) Blood us Houston Perla MD CHEMISTRY ORDERABLES Final Resu lt * CHG CA 15 3 (08/16/2024 10:40 AM CDT) us Houston Perla MD CHG - LABORATORY Final Result * MAMMO DIAGNOSTIC UNI LEFT W OR WO CAD (12/08/2023 4:08 PM CDT) Anatomical Region Laterality Modality Breast Left Mammography Houston Perla MD MAMMO ORDERABLES Final Result from Last 3 Months or Most Recently Relevant to Health Maintenance Insurance [facility] PPO [facility] Care Teams Rehabilitation Services Counselor Relationship Specialty Start Date End Date Enrico Cassidy MD PCP - General Family Practice 05/28/22
--- OUTSIDE RECORDS SUMMARY | 2024-09-15 14:54 | XMS_ITS | Referral Summary ---
Author Organization [facility] Address [address] [place] [address] Care Team Providers Care Research Technician Name Role Phone Enrico Cassidy MD Primary Care Prov ider Encounters Date Type Department Care Team Description 09/07/2024 Orders Only [facility] [place] [address], [address] [place] [address] Avelina Mckinley MD Chronic pain of right knee (Primary Dx) 09/06/2024 Telephone [facility] at [address], [address] [place] [address] Avelina Mckinley MD pain diary call 09/06/2024 6:58 AM CDT - 09/06/2024 11:59 PM CDT Hospital Encounter [facility] [address], [address] [place] [address] Avelina Mckinley MD Chronic pain of right knee Discharge Disposition: Discharge to home or self care 08/09/2024 7:02 AM CDT - 08/09/2024 11:59 PM CDT Hospital Encounter [facility] at [address], [address] [place] [address] Avelina Mckinley MD Chronic pain of right knee (Primary Dx); Acute knee pain, unspecified laterality; Primary osteoarthritis of right knee Discharge Disposition: Discharge to home or self care 07/10/2024 Telephone [facility] at [facility] [address] [facility] [address], [address] [place] [address] Guerita Garay RN PMC Intake Assessment 07/07/2024 8:14 AM CDT - 07/07/2024 11:59 PM CDT Hospital Encounter [facility] Rad[facility] [address] [place] [address] Acute knee pain, unspecified laterality; Right knee pain, unspecified chronicity Discharge Disposition: Discharge to home or self care 07/07/2024 9:00 AM CDT Office Visit [facility] Orthopaedic Surgery [address] [place] [address] [address] Building [address] [place] [address] Timmy Ashley MD Primary osteoarthritis [...] on file 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 Author CCM Chronic Pain Care Plan Chronic Care Management No Sydni Grurola, KRISTI Note: Problem: Chronic Pain Goals: 1. [...] on stairs Contact your local community or [facility] for information on exercise, fall prevention programs, [...] Months Results * Imaging Genicular Nerve Block (81788) (09/06/2024 7:56 AM CDT) Narrative RAD_PACS_[facility] - [...] Final Result from Last 3 Months Insurance [employer] PPO Member Subscriber Plan / Payer (Ef fective 2024-Present) Name:Chen Dickerson Ann Relation to Subscriber:Self Name:Chen Dickerson Payer ID:[id number] (NAIC) Type:MEDICARE RISK OTHER Address: [place] [id number] [employer] PPO Member Subscriber Plan / Payer (Ef fective 2024-Present) Name:Chen Dickerson Ann Relation to Subscriber:Self Name:Chen Dickerson Payer ID:[id number] (NAIC) Type:MEDICARE RISK OTHER Address: [place] [id number] Care Teams Research Technician Relationship Specialty Start Date End Date Enrico Cassidy MD [address] [place], [place] [id number] PCP - General Family Medicine 05/10/24
== END 2024-09-15 14:51 | disposition home or self-care (01) ==
LOC: ANHIMG 14:52
PROVIDERS: PCP Family Medicine Adolescent Medicine; Visit Provider Internal Medicine Hematology & Oncology
DX: Z12.31 Encounter for screening mammogram for malignant neoplasm of breast (principal)
CPT/HCPCS: 77063; 77067

== ENCOUNTER 2024-12-28 08:27 | Outpatient (CLI) | payer OTHER, SELFPAY ==
--- OUTSIDE RECORDS SUMMARY | 2024-12-28 08:35 | XMS_ITS | Encounter Summary ---
Author Organization [facility] Address [address] [place] [address] Care Team Providers Care Materials Director Name Role Phone Enrico Cassidy MD Primary Care Provider +1- [phone] Encounter Details Date Type Department Care Team (Late st Contact Info) Description 12/27/2024 External Device Data STL ABSTRACTION Provider, Abstract NO ADDRESS ON FILE Social History Tobacco Use Types Packs/Day Years Used Date Smoking Tobacco: Never Smokeless Tobacco: Never Alcohol Use Standard Drinks/Week Comments Yes 1 (1 standard drink = 0.6 oz pur e alcohol) Comments Unknown Sex and Gender Information Value Date Recorded Sex Assigned at Not on file Legal Sex Female 12:49 PM CDT Gender Identity Not on file Sexual Orientation Not on file documented as of this encounter Plan of Treatment Upcoming Encounters Date Type Department Care Team (Late st Contact Info) Description 01/05/2025 8:45 AM CDT Office Visit [facility] Oncology and Hematology - [place] [address] [facility] [address] [place] [address] Houston Perla MD [address] [facility] [address] [place] [address] documented as of this encounter Visit Diagnoses Not on filedocumented in this encounter Care Teams Materials Director Relationship Specialty Start Date End Date Enrico Cassidy MD PCP - General Family Practice 05/28/22 documented as of this encounter
--- OUTSIDE RECORDS SUMMARY | 2024-12-28 08:35 | XMS_ITS | Encounter Summary ---
Author Organization [facility] Address [address] [place] [address] Care Team Providers Care Pm Head Cook Name Role Phone Enrico Cassidy MD Primary Care Provider +1- [phone] Encounter Details Date Type Department Care Team (Late st Contact Info) Description 12/26/2024 External Device Data STL ABSTRACTION Provider, Abstract [...] Description 01/05/2025 8:45 AM CDT Office Visit [facility] Oncology and Hematology - [place] [address] [facility] [address] [place] [address] Houston Perla MD [address] [facility] [address] [place] [address] documented as of this encounter Visit Diagnoses Not on filedocumented in this encounter Care Teams Pm Head Cook Relationship Specialty Start Date End Date Enrico Cassidy MD PCP - General Family Practice 05/28/22 documented as of this encounter
--- OUTSIDE RECORDS SUMMARY | 2024-12-28 08:35 | XMS_ITS | Clinical Summary ---
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
--- OUTSIDE RECORDS SUMMARY | 2024-12-28 08:35 | XMS_ITS | Clinical Summary ---
Author Organization [facility] aneudy [facility] Address [address] [place] [address] Care Team Providers Care Professor Of Apologetics Name Role Phone Enrico Cassidy MD Primary Care Provider +1- [phone] Allergies Active Allergy Reactions Criticality Noted Date [...] 1 Tablet by mouth daily. 05/25/2023 Active meloxicam (MOBIC) 15 mg tablet Take 15 mg by mouth daily. 03/29/2024 Active tamoxifen (NOLVADEX) 20 mg tablet Take 1 Tablet (20 mg) by mouth daily. 90 Tablet 3 08/25/2024 Active Active Problems No known active problems Encounters Date Type Department Care Team Description 12/27/2024 External Device Data STL ABSTRACTION Provider, Abstract 12/26/2024 External Device Data STL ABSTRACTION Provider, Abstract 11/21/2024 External Device Data STL ABSTRACTION Provider, Abstract 11/21/2024 External Device Data STL ABSTRACTION Provider, Abstract 2024 External Device Data STL ABSTRACTION Provider, Abstract 10/11/2024 External Device Data STL ABSTRACTION Provider, Abstract 10/10/2024 External Device Data STL ABSTRACTION Provider, Abstract 10/10/2024 External Device Data STL ABSTRACTION Provider, Abstract [...] Description 01/05/2025 8:45 AM CDT Office Visit [facility] Oncology and Hematology - [place] [address] [place] [address] Houston Perla MD [address] [facility] [address] [place] [address] Health Maintenance Due Date Last [...] (1 of 2) 2004 OSTEOPOROSIS SCREENING 10/26/2019 Medicare [place] ([place]) Prev entative Visit/Annual Wellness Visit 03/08/2024 INFLUENZA VACCINE (#1) 2024 BREAST CANCER SCREENING [...] Most Recently Relevant to Health Maintenance [facility] Care Teams Professor Of Apologetics Relationship Specialty Start Date End Date Enrico Cassidy MD PCP - General Family Practice 05/28/22
--- OUTSIDE RECORDS SUMMARY | 2024-12-28 08:35 | XMS_ITS | Clinical Summary ---
Author Organization [facility] Address [address] [place] [address] Care Team Providers Care Automotive Hardware Engineer Name Role Phone Enrico Cassidy MD Primary [...] mg total) by mouth daily 03/05/2022 Active multivitamin tablet Take 1 tablet by mouth daily Active tamoxifen (NOLVADEX) 20 mg tablet 04/22/2024 Active zinc sulfate (ZINCATE) 50 mg zinc (220 mg) capsule Take 1 capsule (220 mg total) by mouth daily Active atorvastatin (LIPITOR) 20 mg tablet Take 1 tablet (20 mg total) by mouth daily Active naproxen sodium 220 mg capsule Take by mouth Active cholecalciferol 25 mcg (1,000 unit) tablet Take 1 tablet (1,000 Units total) by mouth 06/15/2022 Active potassium chloride ER 10 mEq CR tablet Take 1 tablet/capsu le (10 mEq total) by mouth once Active magnesium oxide 400 mg magnesium capsule Take by mouth Active ascorbic acid (ascorbic acid with rhianna hips) 500 mg tablet,chewable Acti ve vit C,G-Ok-lreuy-nayely tein-zeaxan 250-90-40-1 mg capsule Take by mouth Active Active Problems No known active problems Encounters Date Type Department Care Team Description 11/29/2024 8:58 AM CDT - 11/29/2024 11:59 PM CDT Hospital Encounter [facility] at [address], [address] [place] [address] Avelina Mckinley MD Chronic pain of right knee (Primary Dx) Discharge Disposition: Discharge to home or self care 10/26/2024 Telephone [facility] at [address], [address] [place], [place] [address] Avelina Mckinley MD 10/12/2024 9:22 AM CDT - 10/12/2024 11:59 PM CDT Hospital Encounter [facility] at [address], [address] [place], [place] [address] Avelina Mckinley MD Chronic pain of right knee Discharge Disposition: Discharge to home or self care 10/11/2024 Telephone [facility] at [address], [address] [place], [place] [address] Avelina Mckinley MD Pre sedation call from Last 3 Months Surgical History Surgery Date Site/Laterality Comments BREAST LUMPECTOMY 03/08/2022 - 03/07/2023 Left Medical History Medical History Date Comments Hypertension Social History Tobacco Use Types Packs/Day Years Used Date Smoking Tobacco: Never Smokeless Tobacco: Never Tobacco Cessation:Counseling Given: Not Answered AUDIT-C Answer Date Recorded Q1: How often do you have a drink containing alc ohol? 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 Gender Identity Not on file Sexual Orientation Not on file Obstetrics History Last Filed Vital Signs Vital Sign Reading Time Taken Comments Blood Pressure 125/82 11/29/2024 9:04 AM CDT Pulse 91 11/29/2024 9:04 AM CDT Temperature 36.2 C (97.2 F) 11/29/2024 9:04 AM CDT Respiratory Rate 18 11/29/2024 9:04 AM CDT Oxygen Saturation 95% 11/29/2024 9:04 AM CDT Inhaled Oxygen Concentration - - Weight 88.9 kg (196 lb) 10/12/2024 9:33 AM CDT Height 160 cm (5' 3) 10/12/2024 9:33 AM CDT Body Mass Index 34.72 10/12/2024 9:33 AM CDT Plan of Treatment Health Maintenance Due Date Last Done Comments Breast Cancer Screening-Mammogram 1954 Colon Cancer Screening-Colonoscopy 1955 Depression Screening 1954 Hepatitis C Screening 1954 Osteoporosis Screening-Bone Density Scan 1954 Hepatitis B Screening 1972 Well Visit 65+ 10/26/2019 Pneumococcal vaccine 65+ (2 of 2 - PCV) 01/01/2021 01/02/2020 Covid-19 Vaccine (7 - Pfizer risk 2023- season) 2024 12/20/2023, 12/28/2022, 12/11/2021, Additional history exists Influenza Vaccine (#1) 2024 , 12/28/2022, 12/04/2021 Fall Risk Assessment 11/29/2025 11/29/2024, 10/12/2024, 09/06/2024, Additional history exists DTaP/Tdap/Td Vaccine (3 - Td or Tdap) 05/06/2033 05/07/2023, 07/27/2009 Zoster Vaccine Completed 05/02/2020, 01/02/2020 Goals Goal Patient Goal Type Associated Problems Recent Progress Patient-Stated? Author CCM Chronic Pain Care Plan Chronic Care Management Erica pro, Sydni Heard, KRISTI Note: Problem: Chronic Pain Goals: 1. Minimize further functional decline 2. Maximize quality of life 3. Control pain Strategies: - Activity/exercise program recommendation - Conservative stepwise pain medicine strategy with multi-disciplinary approach - Recommend healthy lifestyle strategies and compensatory methods as needed Reduce the likelihood of falling Lifestyle No Lesly pro, Sydni Heard RN Note: Below are four things you [...] on stairs Contact your local community or [facility] for information on exercise, fall prevention programs, or options for improving home safety. Procedures Procedure Name Priority Date/Time Associated Diagnosis Comments PAIN MGMT IMAGING CERVICAL/THORACIC FACET/MEDIAL BRANCH BLOCK Schedule Routine, Read Routine (OP Routine) 10/12/2024 10:57 AM CDT Chronic pain of right knee from Last 3 Months Results * Imaging Genicular RFA Right (02841) (10/12/2024 10:57 AM CDT) Narrative RAD_PACS_[facility] - 10/12/2024 10:58 AM CDT The images from this study are not interpreted by Radiology. Please refer to the physician's procedure / OR operative note. us Avelina Mckinley MD IMG PAIN MGMT PROCEDURES Final Result RAD_PACS_[facility] from Last 3 Months Insurance [employer] PPO [employer] Care Teams Automotive Hardware Engineer Relationship Specialty Start Date End Date Enrico Cassidy MD PCP - General Family Medicine 05/10/24
[2024-12-28 08:46] LABS: Hematocrit 36.5 % (37.0-47.0); Hemoglobin 12.2 g/dL (12.0-15.0); Immature Granulocyte Percent A 0.2 % (0-0.5); Lymphocytes Absolute Auto 1.00 K/mm3 (0.9-3.2); Mean Corpuscular HGB Conc 33.4 g/dl (32-36); Mean Corpuscular Hemoglobin 30.5 pg (26-34); Mean Corpuscular Volume 91.3 fl (80-100); Nucleated Red Blood Cells Absolute Auto 0.000 K/mm3 (0.0-0.012); Nucleated Red Blood Cells Perc 0.0 % (0.0-0.2); Platelet Count Result 204 k/mm3 (150-375); Red Blood Count 4.00 M/mm3 (4.2-5.4); White Blood Count 4.8 K/mm3 (4.5-10.0)
[2024-12-28 10:01] LABS: Alanine Aminotransferase 26 U/L (6-35); Albumin Level 4.3 g/dL (3.5-5.1); Alkaline Phosphatase 51 U/L (38-126); Anion Gap 9 mmol/L (4-12); Aspartate Amino Transferase 28 U/L (14-36); Bilirubin,Total 0.7 mg/dL (0.2-1.3); Blood Urea Nitrogen 20 mg/dL (7-17); Calcium 9.1 mg/dL (8.4-10.2); Carbon Dioxide 26 mmol/L (22-30); Chloride 102 mmol/L (98-107); Cholesterol 122 mg/dL (0-200); Estimated Glomerular Filt Rate 52; Glucose 102 mg/dL (65-110); HDL Direct 54 mg/dL; Potassium 3.9 mmol/L (3.4-5.0); Sodium 137 mmol/L (137-145); Total Protein 7.0 g/dL (6.3-8.2); Triglycerides 98 mg/dL (<150)
== END 2024-12-28 08:28 | disposition home or self-care (01) ==
LOC: ANHLAB 08:29
PROVIDERS: PCP Family Medicine Adolescent Medicine; Visit Provider Internal Medicine Hematology & Oncology
DX: E78.2 Mixed hyperlipidemia (principal); I10 Essential (primary) hypertension; C50.412 Malignant neoplasm of upper-outer quadrant of left female breast; Z17.0 Estrogen receptor positive status [ER+]
CPT/HCPCS: 36415; 80053; 80061; 85025; 86300